=== PATIENT | female | born 1990 | race Caucasian/White ===

== ENCOUNTER 2017-02-07 07:34 | Emergency (ER) | payer BC ==
[2017-02-07 07:53] VITALS: BP 119/75
--- NOTE | 2017-02-07 08:02 | UC ---
Cardiac HPI - HPI Summary HPI Summary: Constant "stabbing" substernal and left chest pain with intermittent worsening of pain that radiates down left arm for three days. Difficulty sleeping last night due to pain. Saw her PCP 01/28/17 for one month of RUQ to back pain: normal US and elevated LFTs. Has an appointment with Gastro tomorrow. Patient is a store mgr. PCP Luisa Calabrese. Denies being on control. Pain started on 02/04 intermittently, became constant on 02/05 without any relief. Pain became more intense in nature on 02/06 with pain ranging from 5 - 8/ 10 in severity. No relief with antacids. Denies . she has decreased smoking from 1/2 ppd to 4 ciggs per day. No FHx heart disease, PE or DVT. - History of Current Complaint Chief Complaint: UCChestPain Stated Complaint: CHEST PAIN INTO ARM, BACK ,SHOULDER Time Seen by Provider: 02/07/17 07:42 - Allergy/Home Medications Allergies/Adverse Reactions: Allergies Allergy/AdvReac Type Severity Reaction Status Date / Time [place] Oil Allergy See Comment Verified 02/07/17 07:49 Soy Allergy Allergy See Comment Verified 02/07/17 07:49 Home Medications: Home Medications Calcium Carbonate CHEW TAB* [Tums*] 1,000 mg PO ONCE 02/07/17 [History Confirmed 02/07/17] Ondansetron ODT TAB* [Zofran 4 MG Odt TAB*] 4 mg PO Q6H PRN 02/07/17 [History Confirmed 02/07/17] PMH/Surg Hx/FS Hx/Imm Hx Previously Healthy: Yes Endocrine History Of: Denies: Diabetes, Thyroid Disease, Hyperthyroidism, Hypothyroidism, Dyslipidemia Cardiovascular History Of: Denies: Cardiac Disorders, Hypertension, Pacemaker/ICD, Myocardial Infarction , Congestive Heart Failure, Atrial Fibrillation, Deep Vein Thrombosis, Bleeding Disorders Respiratory History Of: Denies: COPD, Asthma, Bronchitis, Pneumonia, Pulmonary Embolism GI/ History Of: Denies: Gastroesophageal Reflux, Ulcer, Gastrointestinal Bleed, Gall Bladder Disease, Kidney Stones, Diverticulitis, Renal Disease, Urosepsis Neurological History Of: Denies: TIA, CVA, Dementia, Seizures, Migraine Psychological History Of: Denies: Anxiety, Depression, Bipolar Disorder, Schizophrenia, Post Traumatic Stress Disorder Cancer History Of: Denies: Lung Cancer, Colorectal Cancer, Breast Cancer, Prostate Cancer, Cervical Cancer Other History Of: Negative For: HIV, Hepatitis B, Hepatitis C - Surgical History Surgical History: None - Family History Known Family History: Positive: Other - No DVT or PE Negative: Cardiac Disease, Hypertension - Social History Alcohol Use: None Substance Use Type: None Substance Use Comment - Amount & Last Used: Weekly and last used yesterday Smoking Status (MU): Light Every Day Tobacco Smoker Type: Cigarettes Amount Used/How Often: 1/5 PPD Length of Time of Smoking/Using Tobacco: Since age 17 Have You Smoked in the Last Year: Yes Household Exposure Type: Cigarettes - Immunization History Most Recent Influenza Vaccination: Not the Season Review of Systems Constitutional: Negative Skin: Negative Eyes: Negative ENT: Negative Respiratory: Negative Cardiovascular: Chest Pain Gastrointestinal: Abdominal Pain Genitourinary: Negative Motor: Negative Neurovascular: Negative Musculoskeletal: Negative Neurological: Negative Psychological: Negative All Other Systems Reviewed And Are Negative: Yes Physical Exam Triage Information Reviewed: Yes Appearance: Well-Appearing, No Pain Distress, Well-Nourished Vital Signs: Initial Vital Signs Temp 97.8 F 02/07/17 07:47 Pulse 90 02/07/17 07:47 Resp 18 02/07/17 07:47 BP 119/75 02/07/17 07:47 Pulse Ox 100 02/07/17 07:47 Vital Signs Reviewed: Yes Eye Exam: Normal ENT Exam: Normal ENT: Positive: Pharynx normal, TMs normal Dental Exam: Normal Neck exam: Normal Neck: Positive: Supple, Nontender, No Lymphadenopathy Respiratory Exam: Normal Respiratory: Positive: Chest non-tender, Lungs clear, Normal breath sounds, No respiratory distress, No accessory muscle use, Other: - no tenderness in thoracic back. Negative: Crackles, Rhonchi, Stridor, Wheezing Cardiovascular Exam: Normal Cardiovascular: Positive: RRR, No Murmur, Pulses Normal, Brisk Capillary Refill Abdominal Exam: Normal Abdomen Description: Positive: Nontender, Soft Musculoskeletal Exam: Normal Neurological Exam: Normal Psychological Exam: Normal Skin Exam: Normal Diagnostics - EKG Cardiac Rate: NL Cardiac Rhythm: Sinus: Normal Ectopy: None ST Segment: Normal - no previous to compare - Assessment/Plan Course Of Treatment: Explained the need to r/o PE and need for CT with contrast that must be done through the ER. She declines ambulance and has signed AMA form. She prefers [facility], which is most reasonable as it is closest and concern for potential life threatening emergency. She is very agreeable with going straight to the ER. - Differential Diagnoses - Chest Pain Differential Diagnosis/HQI/PQRI: Acute TX, ACS, Angina, Aortic Aneurysm, Chest Wall, GI Disease, Pulmonary Edema, Pulmonary Embolism - Differential Diagnoses - Hypertension Differential Diagnosis/HQI PQRI: AAA, Angina, Other - PE, gerd - Clinical Impression Provider Diagnoses: chest pain, back pain, left arm pain - Physician Notifications Discussed Patient Care With: Ysabel Pappas NP at [facility] who accepts pt. Aware of concern for PE and recommendation for CT with contrast. nml EKG findings. She declines ambulance and prefers to go to [facility] by private care. Time Discussed With Above Provider: 08:15 Discharge - Discharge Plan Condition: Fair Disposition: TRANS HIGHER LVL OF CARE FAC Referrals: No Primary Care Phys,NOPCP [Primary Care Provider] - 2 Days Luisa Calabrese MD [Medical Doctor] -
== END 2017-02-07 08:25 | disposition short-term general hospital (02) ==
LOC: UCCORT 07:34
DX: R07.2 Precordial pain (principal); M79.602 Pain in left arm; M54.9 Dorsalgia, unspecified; F17.210 Nicotine dependence, cigarettes, uncomplicated
CPT/HCPCS: 93005; 99212; G0463

== ENCOUNTER 2017-03-26 19:03 | Emergency (ER) | payer BC ==
[2017-03-26 19:25] VITALS: BP 132/88
--- NOTE | 2017-03-26 19:41 | UC ---
UC Dental HPI - HPI Summary HPI Summary: pt presents with c/o of gradual onset of right upper molar pain. Pt has not been to a dentist in 7 years and reports that she noticed that her right last upper molar has a "hole in it" The molar has become increasingly tender with chewing and pain radiate to right ear and forehead - History of Current Complaint Chief Complaint: UCDentalProblem Stated Complaint: DENTAL Time Seen by Provider: 03/26/17 19:35 Hx Obtained From: Patient Hx Last Menstrual Period: 03/21/17 ?: No Onset/Duration: Gradual Onset, Lasting Days Severity: Mild Aggravating: Heat, Cold, Chewing - Allergies/Home Medications Allergies/Adverse Reactions: Allergies Allergy/AdvReac Type Severity Reaction Status Date / Time [place] Oil Allergy See Comment Verified 03/26/17 19:15 Soy Allergy Allergy See Comment Verified 03/26/17 19:15 Home Medications: Home Medications Acetaminophen TAB* [Tylenol TAB*] 1,000 mg PO PRN 03/26/17 [History] Amoxicillin (*) [Amoxicillin 875 MG (*)] 500 mg BID 03/26/17 [History Confirmed 03/26/17] Omeprazole CAP* [Prilosec CAP* 20 MG] 20 mg PO DAILY 03/26/17 [History Confirmed 03/26/17] PMH/Surg Hx/FS Hx/Imm Hx Endocrine History Of: Denies: Diabetes, Thyroid Disease, Hyperthyroidism, Hypothyroidism, Dyslipidemia Cardiovascular History Of: Denies: Cardiac Disorders, Hypertension, Pacemaker/ICD, Myocardial Infarction , Congestive Heart Failure, Atrial Fibrillation, Deep Vein Thrombosis, Bleeding Disorders Respiratory History Of: Denies: COPD, Asthma, Bronchitis, Pneumonia, Pulmonary Embolism GI/ History Of: Denies: Gastroesophageal Reflux, Ulcer, Gastrointestinal Bleed, Gall Bladder Disease, Kidney Stones, Diverticulitis, Renal Disease, Urosepsis Neurological History Of: Denies: TIA, CVA, Dementia, Seizures, Migraine Psychological History Of: Denies: Anxiety, Depression, Bipolar Disorder, Schizophrenia, Post Traumatic Stress Disorder Cancer History Of: Denies: Lung Cancer, Colorectal Cancer, Breast Cancer, Prostate Cancer, Cervical Cancer Other History Of: Negative For: HIV, Hepatitis B, Hepatitis C - Surgical History Surgical History: None - Family History Known Family History: Positive: Other - No DVT or PE Negative: Cardiac Disease, Hypertension - Social History Alcohol Use: None Substance Use Type: None Substance Use Comment - Amount & Last Used: Weekly and last used yesterday Smoking Status (MU): Light Every Day Tobacco Smoker Type: Cigarettes Amount Used/How Often: 1/5 PPD Length of Time of Smoking/Using Tobacco: Since age 17 Have You Smoked in the Last Year: Yes Household Exposure Type: Cigarettes - Immunization History Most Recent Influenza Vaccination: NONE Most Recent Tetanus Shot: UTD Review of Systems Constitutional: Negative Skin: Negative Eyes: Negative ENT: Ear Ache - right ear, Other - dental pain Respiratory: Negative Cardiovascular: Negative Gastrointestinal: Negative Genitourinary: Negative, Dysuria Motor: Negative Neurovascular: Negative Musculoskeletal: Negative Neurological: Headache Psychological: Negative All Other Systems Reviewed And Are Negative: Yes Physical Exam Triage Information Reviewed: Yes Appearance: Well-Appearing Vital Signs: Initial Vital Signs Temp 98.1 F 03/26/17 19:19 Pulse 84 03/26/17 19:19 Resp 18 03/26/17 19:19 BP 132/88 03/26/17 19:19 Pulse Ox 100 03/26/17 19:19 Vital Signs Reviewed: Yes Eye Exam: Normal ENT Exam: Normal Dental Exam: Other Dental: Positive: Gross Decay/Caries @ - right last molar fractured Neck exam: Normal Respiratory Exam: Normal Cardiovascular Exam: Normal Musculoskeletal Exam: Normal Neurological Exam: Normal Psychological Exam: Normal Skin Exam: Normal Dental Complaint Course/Dx - Differential Dx/Diagnosis Differential Diagnosis/Dx: Dental Abscess, Dental Caries, Fractured Tooth Provider Diagnoses: right fractured molar. dental abscess Discharge - Discharge Plan Condition: Stable Disposition: HOME Prescriptions: Amoxicillin CAP* [Amoxicillin 500 MG CAP*] 500 mg PO Q12H #14 cap Ibuprofen TAB* [Motrin TAB* 800 MG] 800 mg PO Q8H #21 tab Lidocaine 2% VISCOUS* [Xylocaine 2% Viscous*] 15 ml SWISH SPIT Q4H PRN #1 btl PRN Reason: Pain Patient Education Materials: Dental Abscess (ED) Referrals: Luisa Calabrese MD [Primary Care Provider] - Additional Instructions: Please follow up with a dental care provider as soon as possible. Please return to clinic as needed.
== END 2017-03-26 19:49 | disposition home or self-care (01) ==
LOC: UCCORT 19:03
DX: K04.7 Periapical abscess without sinus (principal); K03.81 Cracked tooth; K02.9 Dental caries, unspecified; F17.210 Nicotine dependence, cigarettes, uncomplicated
CPT/HCPCS: 99212; G0463

== ENCOUNTER 2017-05-02 18:26 | Emergency (ER) | payer BC ==
[2017-05-02 19:17] VITALS: BP 133/71
--- NOTE | 2017-05-02 19:47 | UC ---
UC Dental HPI - HPI Summary HPI Summary: pt presents with c/o bilateral upper and lower wisdom teeth pain and dental fracture. Pt is scheduled to have 4 wisdom teeth out on May 19. - History of Current Complaint Chief Complaint: UCDentalProblem Stated Complaint: TOOTH PAIN Time Seen by Provider: 05/02/17 19:38 Hx Obtained From: Patient Hx Last Menstrual Period: 04/16/17 ?: No Onset/Duration: Gradual Onset, Lasting Days, Still Present Severity: Moderate Aggravating: Chewing Related History: Swelling, Other - dental fracture - Allergies/Home Medications Allergies/Adverse Reactions: Allergies Allergy/AdvReac Type Severity Reaction Status Date / Time [place] Oil Allergy See Comment Verified 05/02/17 19:17 Soy Allergy Allergy See Comment Verified 05/02/17 19:17 PMH/Surg Hx/FS Hx/Imm Hx Previously Healthy: Yes - history poor dentition Other History Of: Negative For: HIV, Hepatitis B, Hepatitis C - Surgical History Surgical History: None - Family History Known Family History: Positive: Other - No DVT or PE Negative: Cardiac Disease, Hypertension - Social History Alcohol Use: None Substance Use Type: None Substance Use Comment - Amount & Last Used: Weekly and last used yesterday Smoking Status (MU): Light Every Day Tobacco Smoker Type: Cigarettes Amount Used/How Often: 1/5 PPD Length of Time of Smoking/Using Tobacco: Since age 17 Have You Smoked in the Last Year: Yes Household Exposure Type: Cigarettes - Immunization History Most Recent Influenza Vaccination: NONE Most Recent Tetanus Shot: UTD Review of Systems Constitutional: Negative Skin: Negative Eyes: Negative ENT: Other - dental pain, jaw pain Respiratory: Negative Cardiovascular: Negative Gastrointestinal: Negative Genitourinary: Negative Motor: Negative Neurovascular: Negative Musculoskeletal: Arthralgia - jaw pain Neurological: Negative Psychological: Negative All Other Systems Reviewed And Are Negative: Yes Physical Exam Triage Information Reviewed: Yes Vital Signs: Initial Vital Signs Temp 98.2 F 05/02/17 19:10 Pulse 82 05/02/17 19:10 Resp 17 05/02/17 19:10 BP 133/71 05/02/17 19:10 Pulse Ox 100 05/02/17 19:10 Vital Signs Reviewed: Yes Eye Exam: Normal ENT Exam: Other - jaw pain Dental Exam: Other Dental: Positive: Dental Fracture @ - wisdom teeth, bilateral Neck exam: Normal Musculoskeletal Exam: Normal Neurological Exam: Normal Psychological Exam: Normal Skin Exam: Normal Dental Complaint Course/Dx - Differential Dx/Diagnosis Differential Diagnosis/Dx: Dental Abscess, Fractured Tooth Provider Diagnoses: dental fracture. dental abscess Discharge - Discharge Plan Condition: Stable Disposition: HOME Prescriptions: Amoxicillin (*) [Amoxicillin 875 MG (*)] 875 mg PO BID #20 tab Ibuprofen TAB* [Motrin TAB* 800 MG] 800 mg PO Q8H #21 tab predniSONE TAB* [Deltasone TAB*] 20 mg PO DAILY #5 tab Patient Education Materials: Dental Abscess (ED) Forms: *Work Release Referrals: Luisa Calabrese MD [Primary Care Provider] - Additional Instructions: Please follow up with your dental care provider as needed.
== END 2017-05-02 19:57 | disposition home or self-care (01) ==
LOC: UCCORT 18:26
DX: K03.81 Cracked tooth (principal); K08.89 Other specified disorders of teeth and supporting structures; F17.210 Nicotine dependence, cigarettes, uncomplicated
CPT/HCPCS: 99212; G0463

== ENCOUNTER 2017-06-07 08:17 | Emergency (ER) | payer BC ==
[2017-06-07 08:39] VITALS: BP 114/74
--- NOTE | 2017-06-07 08:47 | UC ---
Respiratory Complaint HPI - HPI Summary HPI Summary: COUGH / CHEST CONGESTION X 2 DAYS + WHEEZING, NO FEVER, NO CHILLS, NO SOB - History of Current Complaint Chief Complaint: UCRespiratory Stated Complaint: COUGH,CONGESTION Time Seen by Provider: 06/07/17 08:39 Hx Obtained From: Patient Hx Last Menstrual Period: 05/14/17 Onset/Duration: Gradual Onset, Lasting Days - 2, Still Present Timing: Constant Severity Initially: Moderate Severity Currently: Moderate Character: Cough: Productive - YELLOW Aggravating Factors: Exertion, Deep Breaths Alleviating Factors: Nothing Associated Signs And Symptoms: Positive: Wheezing, URI, Nasal Congestion. Negative: Dyspnea, Fever, Chills, Pleuritic Chest Pain, Calf Pain, Calf Swelling , Sinus Discomfort - Allergies/Home Medications Allergies/Adverse Reactions: Allergies Allergy/AdvReac Type Severity Reaction Status Date / Time [place] Oil Allergy See Comment Verified 06/07/17 08:29 Soy Allergy Allergy See Comment Verified 06/07/17 08:29 seasonal Allergy Eyes Uncoded 06/07/17 08:29 Itchy/Swollen/Red/Watery Home Medications: Home Medications Diphenhydramine-Phenylephrine- [Theraflu Expressmax 12.5-5-325 mg/15Ml] 1 liq PO ONCE PRN 06/07/17 [History Confirmed 06/07/17] PMH/Surg Hx/FS Hx/Imm Hx GI/ History: Gastroesophageal Reflux Other History Of: Negative For: HIV, Hepatitis B, Hepatitis C - Surgical History Surgical History: None - Family History Known Family History: Positive: Other - No DVT or PE Negative: Cardiac Disease, Hypertension - Social History Alcohol Use: None Substance Use Type: None Substance Use Comment - Amount & Last Used: Weekly and last used yesterday Smoking Status (MU): Light Every Day Tobacco Smoker Type: Cigarettes Amount Used/How Often: 1/5 PPD Length of Time of Smoking/Using Tobacco: Since age 17 Have You Smoked in the Last Year: Yes Household Exposure Type: Cigarettes - Immunization History Most Recent Influenza Vaccination: NONE Most Recent Tetanus Shot: UTD Review of Systems Constitutional: Negative Skin: Negative Eyes: Negative ENT: Nasal Discharge Respiratory: Cough Cardiovascular: Negative Gastrointestinal: Negative All Other Systems Reviewed And Are Negative: Yes Physical Exam Triage Information Reviewed: Yes Appearance: Well-Appearing, No Pain Distress, Obese Vital Signs: Initial Vital Signs Temp 97.5 F 06/07/17 08:21 Pulse 84 06/07/17 08:21 Resp 24 06/07/17 08:21 BP 114/74 06/07/17 08:21 Pulse Ox 99 06/07/17 08:21 Vital Signs Reviewed: Yes Eyes: Positive: Conjunctiva Clear ENT: Positive: Normal ENT inspection, Hearing grossly normal, Pharynx normal Neck: Positive: Supple, Nontender, No Lymphadenopathy Respiratory: Positive: Chest non-tender, No respiratory distress, No accessory muscle use, Wheezing. Negative: Crackles, Rhonchi, Stridor Cardiovascular: Positive: RRR, No Murmur, Pulses Normal Abdominal Exam: Normal Skin Exam: Normal UC Diagnostic Evaluation - Laboratory O2 Sat by Pulse Oximetry: 99 Respiratory Course/Dx - Differential Dx/Diagnosis Provider Diagnoses: VIRAL BRONCHITIS Discharge - Discharge Plan Condition: Stable Disposition: HOME Prescriptions: Albuterol HFA INHALER* [Ventolin HFA Inhaler*] 2 puff INH Q6H PRN #1 mdi PRN Reason: Wheezing Benzonatate CAP* [Tessalon 100 MG CAP*] 100 mg PO TID PRN #21 cap PRN Reason: Cough Patient Education Materials: Acute Bronchitis (ED) Referrals: Luisa Calabrese MD [Primary Care Provider] - 7 Days
== END 2017-06-07 08:56 | disposition home or self-care (01) ==
LOC: UCCORT 08:17
DX: J20.8 Acute bronchitis due to other specified organisms (principal); F17.210 Nicotine dependence, cigarettes, uncomplicated
CPT/HCPCS: 99212; G0463

== ENCOUNTER 2017-11-18 10:27 | Emergency (ER) | payer BC ==
--- NOTE | 2017-11-18 10:48 | UC ---
Throat Pain/Nasal [place] HPI - HPI Summary HPI Summary: 27 YEAR MALE PRESENTS WITH COMPLAINS OF COUGH AND SINUS CONGESTION. - History of Current Complaint Chief Complaint: UCRespiratory Stated Complaint: CONGESTION Time Seen by Provider: 11/18/17 10:47 Hx Obtained From: Patient Hx Last Menstrual Period: 04/16/17 Onset/Duration: Sudden Onset Severity: Moderate Pain Scale Used: 0-10 Numeric - 5 - Allergies/Home Medications Allergies/Adverse Reactions: Allergies Allergy/AdvReac Type Severity Reaction Status Date / Time [place] Oil Allergy See Comment Verified 11/18/17 10:49 Soy Allergy Allergy See Comment Verified 11/18/17 10:49 seasonal Allergy Eyes Uncoded 11/18/17 10:49 Itchy/Swollen/Red/Watery PMH/Surg Hx/FS Hx/Imm Hx Previously Healthy: Yes Other History Of: Negative For: HIV, Hepatitis B, Hepatitis C - Surgical History Surgical History: None - Family History Known Family History: Positive: Other - No DVT or PE Negative: Cardiac Disease, Hypertension - Social History Alcohol Use: None Substance Use Type: None Substance Use Comment - Amount & Last Used: Weekly and last used yesterday Smoking Status (MU): Light Every Day Tobacco Smoker Type: Cigarettes Amount Used/How Often: 1/5 PPD Length of Time of Smoking/Using Tobacco: Since age 17 Have You Smoked in the Last Year: Yes Household Exposure Type: Cigarettes - Immunization History Most Recent Influenza Vaccination: NONE Most Recent Tetanus Shot: UTD Review of Systems Constitutional: Negative Skin: Negative Eyes: Negative ENT: Sore Throat, Nasal Discharge, Sinus Congestion, Sinus Pain/Tenderness Respiratory: Negative Cardiovascular: Negative Gastrointestinal: Negative Genitourinary: Negative Motor: Negative Neurovascular: Negative Musculoskeletal: Negative Neurological: Negative Psychological: Negative All Other Systems Reviewed And Are Negative: Yes Physical Exam Triage Information Reviewed: Yes Vital Signs Reviewed: Yes Eye Exam: Normal ENT: Positive: Pharyngeal erythema, Nasal congestion, Nasal drainage, Sinus tenderness Dental Exam: Normal Neck exam: Normal Neck: Positive: 1 Respiratory Exam: Normal Cardiovascular Exam: Normal Abdominal Exam: Normal Musculoskeletal Exam: Normal Neurological Exam: Normal Psychological Exam: Normal Skin Exam: Normal Throat Pain/Nasal Course/Dx - Differential Dx/Diagnosis Provider Diagnoses: SINUSITIS. COUGH Discharge - Discharge Plan Condition: Stable Disposition: HOME Prescriptions: Albuterol HFA INHALER* [Ventolin HFA Inhaler*] 1 puff INH Q6H PRN #1 mdi PRN Reason: Cough Azithromyxin CATHIE (NF) [Z-Cathie (Zithromax) 250 mg tabs #6] 2 tab PO .TODAY, THEN 1 DAILY #6 tab Guaifenesin-Codeine [Cheratussin AC] 1 syp PO Q8H PRN #120 ml MDD 15 ml PRN Reason: Cough LoraTADine TAB(NF) [Claritin 10 MG TAB(NF)] 10 mg PO DAILY #30 tab Patient Education Materials: Sinusitis (ED) Referrals: No Primary Care Phys,NOPCP [Primary Care Provider] -
[2017-11-18 10:55] VITALS: BP 124/70
== END 2017-11-18 11:04 | disposition home or self-care (01) ==
LOC: UCCORT 10:27
DX: J32.9 Chronic sinusitis, unspecified (principal); R05 Cough; F17.210 Nicotine dependence, cigarettes, uncomplicated
CPT/HCPCS: 99212; G0463

== ENCOUNTER 2017-11-22 08:13 | Emergency (ER) | payer BC ==
[2017-11-22 08:24] VITALS: BP 136/82
--- NOTE | 2017-11-22 08:38 | UC ---
Respiratory Complaint HPI - HPI Summary HPI Summary: continuing cough and chest tightness fevers, chills---boy friend with similar c/ o - History of Current Complaint Chief Complaint: UCRespiratory Stated Complaint: COUGH/CHEST TIGHTNESS Time Seen by Provider: 11/22/17 08:32 Hx Obtained From: Patient Hx Last Menstrual Period: last week ?: No Onset/Duration: Sudden Onset, Lasting Days - 5, Still Present Timing: Constant Severity Initially: Moderate Severity Currently: Moderate Pain Intensity: 6 Pain Scale Used: 0-10 Numeric Character: Cough: Nonproductive Aggravating Factors: Recumbent Position Alleviating Factors: Bronchodilator Associated Signs And Symptoms: Positive: Fever, Chills, Pleuritic Chest Pain, Wheezing, URI, Nasal Congestion - Allergies/Home Medications Allergies/Adverse Reactions: Allergies Allergy/AdvReac Type Severity Reaction Status Date / Time [place] Oil Allergy See Comment Verified 11/22/17 08:24 Soy Allergy Allergy See Comment Verified 11/22/17 08:24 seasonal Allergy Eyes Uncoded 11/22/17 08:24 Itchy/Swollen/Red/Watery PMH/Surg Hx/FS Hx/Imm Hx Previously Healthy: No GI/ History: Gastroesophageal Reflux Other History Of: Negative For: HIV, Hepatitis B, Hepatitis C - Surgical History Surgical History: None - Family History Known Family History: Positive: Other - No DVT or PE Negative: Cardiac Disease, Hypertension - Social History Occupation: Employed Full-time Lives: With Family Alcohol Use: None Substance Use Type: None Substance Use Comment - Amount & Last Used: Weekly and last used yesterday Smoking Status (MU): Light Every Day Tobacco Smoker Type: Cigarettes Amount Used/How Often: 1/5 PPD Length of Time of Smoking/Using Tobacco: Since age 17 Have You Smoked in the Last Year: Yes Household Exposure Type: Cigarettes Cessation Counseling: Patient Advised to Stop - Immunization History Most Recent Influenza Vaccination: NONE 2017/2017 Most Recent Tetanus Shot: UTD Review of Systems Constitutional: Fever, Chills, Fatigue Skin: Negative Eyes: Negative ENT: Sore Throat, Ear Ache, Nasal Discharge, Sinus Congestion Respiratory: Cough Cardiovascular: Negative Gastrointestinal: Negative Genitourinary: Negative Motor: Negative Neurovascular: Negative Musculoskeletal: Arthralgia, Myalgia Neurological: Headache Psychological: Negative Is Patient Immunocompromised?: No All Other Systems Reviewed And Are Negative: Yes Physical Exam Triage Information Reviewed: Yes Appearance: Ill-Appearing - mild, Pain Distress - mild, Obese Vital Signs: Initial Vital Signs Temp 98.0 F 11/22/17 08:18 Pulse 105 11/22/17 08:18 Resp 22 11/22/17 08:18 BP 136/82 11/22/17 08:18 Pulse Ox 100 11/22/17 08:18 Vital Signs Reviewed: Yes Eye Exam: Normal Eyes: Positive: Conjunctiva Clear ENT Exam: Normal ENT: Positive: Normal ENT inspection, Hearing grossly normal, Pharynx normal, TMs normal, Uvula midline. Negative: Nasal congestion, Nasal drainage, Tonsillar swelling, Tonsillar exudate, Trismus, Muffled voice, Hoarse voice, Sinus tenderness Dental Exam: Normal Neck exam: Normal Neck: Positive: Supple, Nontender, No Lymphadenopathy Respiratory Exam: Normal Respiratory: Positive: Chest non-tender, Lungs clear, Normal breath sounds, No respiratory distress, No accessory muscle use Cardiovascular Exam: Normal Cardiovascular: Positive: RRR, No Murmur, Pulses Normal, Brisk Capillary Refill Musculoskeletal Exam: Normal Musculoskeletal: Positive: Strength Intact, ROM Intact, No Edema Neurological Exam: Normal Neurological: Positive: Alert, Muscle Tone Normal Psychological Exam: Normal Skin Exam: Normal UC Diagnostic Evaluation - Laboratory O2 Sat by Pulse Oximetry: 100 Diagnostic Studies Comment: Influenza A (-), Influenza B(+) Respiratory Course/Dx - Course Course Of Treatment: tylenol, ibuprofen, prednisone, albuterol, increase fluids , rest follow with pcp prn - Differential Dx/Diagnosis Provider Diagnoses: Influenza B, Nicotine dependent, Bronchospasm Discharge - Discharge Plan Condition: Stable Disposition: HOME Prescriptions: Albuterol 2.5MG/3ML (0.083%)* [Ventolin 2.5 MG/3 ML NEB.BHARATHI*] 2.5 mg INH Q4H PRN #1 box PRN Reason: cough/chest tightness predniSONE TAB* [Deltasone TAB*] 20 mg PO DAILY #9 tab Patient Education Materials: Influenza (ED) Forms: *Work Release Referrals: [facility] [Outside] - If Needed
[2017-11-22] MEDS ORDERED: Albuterol/Ipratropium NEB.SOL* Albuterol 2.5 MG/Ipratropium 0.5 MG 3 ML INH ONE (08:39)
[2017-11-22] MEDS ORDERED: predniSONE TAB* 20 MG PO ONE (08:39)
== END 2017-11-22 09:22 | disposition home or self-care (01) ==
LOC: UCCORT 08:13
DX: J11.1 Influenza due to unidentified influenza virus with other respiratory manifestations (principal); K21.9 Gastro-esophageal reflux disease without esophagitis; F17.210 Nicotine dependence, cigarettes, uncomplicated
CPT/HCPCS: 87502; 99212; A9270-GY; G0463; J7512

== ENCOUNTER 2017-12-06 21:23 | Emergency (ER) | payer BC, OTHER ==
[2017-12-06 21:33] VITALS: BP 141/75
[2017-12-06] MEDS ORDERED: Amoxicillin PO (*) 500 MG CAP PO ONE (21:40)
--- NOTE | 2017-12-06 21:47 | UC ---
Ear Complaint HPI - HPI Summary HPI Summary: pt c/o nasal congestion, sinus pressure and bilateral ear pain and pressure. c/ o right ear pain > than left. - History of Current Complaint Chief Complaint: UCRespiratory Stated Complaint: HEAD PRESSURE Time Seen by Provider: 12/06/17 21:34 Hx Obtained From: Patient Hx Last Menstrual Period: 11/11/17 ?: No Onset/Duration: Gradual Onset, Lasting Days, Still Present, Worse Since - onset Severity Initially: Mild Severity Currently: Moderate Associated Signs/Symptoms: Positive: Hearing Loss, URI Symptoms - Allergies/Home Medications Allergies/Adverse Reactions: Allergies Allergy/AdvReac Type Severity Reaction Status Date / Time [place] Oil Allergy See Comment Verified 12/06/17 21:33 Soy Allergy Allergy See Comment Verified 12/06/17 21:33 seasonal Allergy Eyes Uncoded 12/06/17 21:33 Itchy/Swollen/Red/Watery PMH/Surg Hx/FS Hx/Imm Hx Previously Healthy: Yes Other History Of: Negative For: HIV, Hepatitis B, Hepatitis C - Surgical History Surgical History: None - Family History Known Family History: Positive: Other - No DVT or PE Negative: Cardiac Disease, Hypertension - Social History Occupation: Employed Full-time Lives: With Family Alcohol Use: Rare Substance Use Type: None Substance Use Comment - Amount & Last Used: Weekly and last used yesterday Smoking Status (MU): Light Every Day Tobacco Smoker Type: Cigarettes Amount Used/How Often: 1/5 PPD Length of Time of Smoking/Using Tobacco: Since age 17 Have You Smoked in the Last Year: Yes Household Exposure Type: Cigarettes - Immunization History Most Recent Influenza Vaccination: NONE 2016/2017 Most Recent Tetanus Shot: UTD Review of Systems Constitutional: Negative Skin: Negative Eyes: Negative ENT: Ear Ache - bilateral, Sinus Congestion, Sinus Pain/Tenderness Respiratory: Cough Cardiovascular: Negative Gastrointestinal: Negative Genitourinary: Negative Motor: Negative Neurovascular: Negative Musculoskeletal: Negative Neurological: Headache Psychological: Negative Is Patient Immunocompromised?: No All Other Systems Reviewed And Are Negative: Yes Physical Exam Triage Information Reviewed: Yes Appearance: Ill-Appearing Vital Signs: Initial Vital Signs Temp 97.5 F 12/06/17 21:28 Pulse 122 12/06/17 21:28 Resp 16 12/06/17 21:28 BP 141/75 12/06/17 21:28 Pulse Ox 100 12/06/17 21:28 Vital Signs Reviewed: Yes Eye Exam: Normal ENT Exam: Other ENT: Positive: Nasal congestion, TM bulging, TM dull, TM red - Bilateral, Right > than left, Sinus tenderness, Other - tongue ring Dental Exam: Normal Neck exam: Normal Respiratory Exam: Normal Cardiovascular Exam: Normal Musculoskeletal Exam: Normal Neurological Exam: Normal Psychological Exam: Normal Skin Exam: Normal Ear Complaint Course/Dx - Differential Dx/Diagnosis Differential Diagnosis/HQI/PQRI: Otitis Media, URI, Other - sinusitis Provider Diagnoses: OM bilateral ears Discharge - Discharge Plan Condition: Stable Disposition: HOME Prescriptions: Amoxicillin PO (*) [Amoxicillin 875 MG (*)] 875 mg PO Q12H #20 tab Pseudoephedrine-Guaifenesin [Mucinex D 60-600 mg] 1 tab PO DAILY #10 tab Patient Education Materials: Otitis Media (ED) Referrals: No Primary Care Phys,NOPCP [Primary Care Provider] - If Needed
== END 2017-12-06 21:48 | disposition home or self-care (01) ==
LOC: UCCORT 21:23
DX: H66.93 Otitis media, unspecified, bilateral (principal); Z72.0 Tobacco use
CPT/HCPCS: 99212; A9270-GY; G0463

== ENCOUNTER 2018-01-27 19:20 | Emergency (ER) | payer OTHER ==
[2018-01-27 19:42] VITALS: BP 117/78
[2018-01-27] MEDS ORDERED: Levalbuterol 0.63MG/3ML NEB* UNIT OF USE INH ONE (19:59)
[2018-01-27] MEDS ORDERED: predniSONE TAB* 20 MG PO ONE (19:59)
--- NOTE | 2018-01-27 20:07 | UC ---
Respiratory Complaint HPI - HPI Summary HPI Summary: Pt c/o sudden onset of nasal congestion, wheezing, cough and generalized malaise X 1 day. - History of Current Complaint Chief Complaint: UCRespiratory Stated Complaint: WHEEZING, CONGESTION Time Seen by Provider: 01/27/18 19:43 Hx Obtained From: Patient Hx Last Menstrual Period: 01/17/18 ?: No Onset/Duration: Sudden Onset, Still Present, Worse Since - onset Timing: Constant Severity Initially: Mild Severity Currently: Moderate Pain Intensity: 0 Character: Cough: Nonproductive Aggravating Factors: Exertion, Deep Breaths, Recumbent Position Alleviating Factors: Nothing Associated Signs And Symptoms: Positive: Wheezing, URI, Nasal Congestion - Risk Factors Pulmonary Embolism Risk Factors: Smoking Cardiac Risk Factors: Smoking Tuberculosis Risk Factors: Smoking - Allergies/Home Medications Allergies/Adverse Reactions: Allergies Allergy/AdvReac Type Severity Reaction Status Date / Time almond oil Allergy See Comment Verified 01/27/18 19:38 soy Allergy See Comment Verified 01/27/18 19:38 seasonal Allergy Eyes Uncoded 12/06/17 21:33 Itchy/Swollen/Red/Watery PMH/Surg Hx/FS Hx/Imm Hx Previously Healthy: Yes Other History Of: Negative For: HIV, Hepatitis B, Hepatitis C - Surgical History Surgical History: None - Family History Known Family History: Positive: Other - No DVT or PE Negative: Cardiac Disease, Hypertension - Social History Occupation: Employed Full-time Lives: With Family Alcohol Use: Rare Substance Use Type: None Substance Use Comment - Amount & Last Used: Weekly and last used yesterday Smoking Status (MU): Light Every Day Tobacco Smoker Type: Cigarettes Amount Used/How Often: 1/5 PPD Length of Time of Smoking/Using Tobacco: Since age 17 Have You Smoked in the Last Year: Yes Household Exposure Type: Cigarettes - Immunization History Most Recent Influenza Vaccination: NONE 2017/2018 Most Recent Tetanus Shot: UTD Review of Systems Constitutional: Chills, Fatigue Skin: Negative Eyes: Negative ENT: Other - nasal congestion Respiratory: Cough, Other - wheezing Cardiovascular: Negative Gastrointestinal: Negative Genitourinary: Negative Motor: Negative Neurovascular: Negative Musculoskeletal: Negative Neurological: Negative Psychological: Negative Is Patient Immunocompromised?: No All Other Systems Reviewed And Are Negative: Yes Physical Exam Triage Information Reviewed: Yes Appearance: Ill-Appearing Vital Signs: Initial Vital Signs Temp 99.5 F 01/27/18 19:36 Pulse 98 01/27/18 19:36 Resp 20 01/27/18 19:36 BP 117/78 01/27/18 19:36 Pulse Ox 98 01/27/18 19:36 Vital Signs Reviewed: Yes Eye Exam: Normal ENT Exam: Other ENT: Positive: Nasal congestion Dental Exam: Normal Neck exam: Normal Respiratory Exam: Other Respiratory: Positive: Wheezing Cardiovascular Exam: Normal Musculoskeletal Exam: Normal Neurological Exam: Normal Psychological Exam: Normal Skin Exam: Normal UC Diagnostic Evaluation - Laboratory O2 Sat by Pulse Oximetry: 98 Respiratory Course/Dx - Differential Dx/Diagnosis Differential Diagnosis/HQI/PQRI: Bronchitis, Influenza, Other - pneumonia Provider Diagnoses: reactive airway disease Discharge - Discharge Plan Condition: Stable Disposition: HOME Prescriptions: Albuterol HFA INHALER* [Ventolin HFA Inhaler*] 1 puff INH Q6H PRN #1 mdi PRN Reason: Cough Cetirizine* [ZyrTEC 10 MG TAB*] 10 mg PO DAILY #20 tab methylPREDNISolone TAB* [Medrol TAB*] 4 - 8 mg PO .SEE CATHIE #1 cathie Montelukast Sodium TAB* [Singulair TAB*] 10 mg PO BEDTIME #20 tab Patient Education Materials: Reactive Airways Disease (ED) Referrals: [facility] [Outside] No Primary Care Phys,NOPCP [Primary Care Provider] -
== END 2018-01-27 20:36 | disposition home or self-care (01) ==
LOC: UCCORT 19:20
DX: J45.909 Unspecified asthma, uncomplicated (principal); Z91.018 Allergy to other foods; Z91.048 Other nonmedicinal substance allergy status; F17.210 Nicotine dependence, cigarettes, uncomplicated
CPT/HCPCS: 99212; G0463; J7512; J7614

== ENCOUNTER 2018-07-04 16:17 | Emergency (ER) | payer OTHER ==
--- OUTSIDE RECORDS SUMMARY | 2018-07-04 16:27 | XMS REPORT ---
:1990 External Reference #:[id number] Author Organization [facility] Address [address] [place] [address] Phone [phone] Care Team Providers Name Role Phone Luisa Calabrese MD Care Team Information Embedded Software Design Engineer Unavailable Luisa Calabrese MD Primary Care Physician Unavailable Payers Type Date Identification Numbers Payment Provider Subscriber Health Maintenance Policy Number: [facility] Lizeth Crane ([facility] [id number] Kedar PayID: [id number] [address] [place] [address] Problems Date Description Provider Status Onset: 06/13/2018 Uncomplicated moderate persistent Michael Osorio MD Active asthma Onset: 06/13/2018 Allergic rhinitis Michael Osorio MD Active Onset: 06/13/2018 Allergic rhinitis due to pollen Michael Osorio MD Active Family History Date Family Member(s) Problem(s) Comments General Gallbladder Cancer General Asthma Social History Type Date Description Comments Home Environment Does not have an air conditioner Home Environment There is no basement Home Environment The floors are carpeted Home Environment Uses forced air heating Smoke-Free Home is smoke-free Pets Rabbit Smoking Patient is a former smoker recently quit smoking cigarettes Allergies, Adverse Reactions, Alerts Date Description Reaction Status Severity Comments 06/13/2018 NKDA active Medications Medication Date Status Form Strength Qnty SIG Indications Ordering Provider Mometasone 06/13/ Active Suspension 50mcg/Act 17gm instill J30.1 [facility] Furoate 2017 2 sprays Aelxi Osorio MD into each nostril once daily Xyzal 06/13/ Active Tablets 5mg 30tabs take 1 J30.1 [facility] 24HR 2018 tablet Alexi Osorio MD (5 mg) by oral route once daily as needed Breo Ellipta 06/13/ Active Aerosol 200-25mcg/ 28unit inhale J30.1 [facility] 2018 Inh s one puff Alexi Osorio MD once a day Proair HFA 06/13/ Active Aerosol 108(90Base 8.500g 2 puffs J30.1 [facility]2017 ) mcg/Act m every 4 Alexi Osorio MD as needed Omeprazole / Active Capsules DR 20mg take one Unknown 0000 capsule daily 30 minutes prior to eating Vital Signs Date Vital Result Comment 06/20/2018 BP Systolic 132 mmHg BP Diastolic 68 mmHg Height 63 inches 5'3" Weight 276.00 lb BMI (Body Mass Index) 48.9 kg/m2 Heart Rate 76 /min Body Temperature 98.1 F O2 % BldC Oximetry 99 % 06/13/2018 BP Systolic 136 mmHg BP Diastolic 72 mmHg Height 63 inches 5'3" Weight 276.00 lb BMI (Body Mass Index) 48.9 kg/m2 Heart Rate 89 /min Body Temperature 98.8 F O2 % BldC Oximetry 98 % Results Description No Information Procedures Date CPT Code Description Status 06/13/2018 41585 Nitric Oxide Gas Determination Completed 06/13/2018 62997 Allergy Tests Percutaneous W/ Allergenic Extracts Completed 06/13/2018 97446 Bronchodilation Responsiveness Spirometry Pre/Post Completed Bronchodil Adm Encounters Type Date Location Provider CPT E/M Dx Office Visit 06/13/2018 10:00a [place] [address] J30.1 J30.89 J45.40 Plan of Care 06/13/2018 - Michael Osorio MDJ30.1 Allergic rhinitis due to pollenNew Medication:Mometasone Furoate 50 mcg/ActXyzal Allergy 24HR 5 mgBreo Ellipta 200- 25 mcg/InhProair HFA 108(90 Base) mcg/ActJ30.89 Other allergic fxwueqdpX10.40 Moderate persistent asthma, uncomplicated
--- OUTSIDE RECORDS SUMMARY | 2018-07-04 16:27 | XMS REPORT ---
:1990 External Reference #:[id number] Author Organization [facility] Address [address] [place] [address] Phone [phone] Care Team Providers Name Role Phone Luisa Calabrese MD Care Team Information Echocardiograph Technician Unavailable Luisa Calabrese MD Primary Care Physician Unavailable Payers Type Date Identification Numbers Payment Provider Subscriber Health Maintenance Policy Number: [facility] Lizeth Crane ([facility] [place] [place] [id number] Kedar PayID: [id number] [address] [place] [address] Problems Description No Information Family History Date Family Member(s) Problem(s) Comments General Gallbladder Cancer General Asthma Social History Type Date Description Comments Home Environment Does not have an air conditioner Home Environment There is no basement Home Environment The floors are carpeted Home Environment Uses forced air heating Smoke-Free Home is smoke-free Pets Rabbit Smoking Patient is a former smoker Allergies, Adverse Reactions, Alerts Date Description Reaction Status Severity Comments 06/13/2018 NKDA active Medications Medication Date Status Form Strength Qnty SIG Indications Ordering Provider Omeprazole [address] 20mg take one Unknown 00 capsule daily 30 minutes prior to eating Vital Signs Date Vital Result Comment 06/13/2018 BP Systolic 136 mmHg BP Diastolic 72 mmHg Height 63 inches 5'3" Weight 276.00 lb BMI (Body Mass Index) 48.9 kg/m2 Heart Rate 89 /min Body Temperature 98.8 F O2 % BldC Oximetry 98 % Results Description No Information Procedures Description No Information Plan of Care No Information Available
--- OUTSIDE RECORDS SUMMARY | 2018-07-04 16:27 | XMS REPORT ---
:1990 External Reference #:[id number] Author Organization [facility] Address [address] [place] [address] Phone [phone] Care Team Providers Name Role Phone Luisa Calabrese MD Care Team Information Television Announcer Unavailable Luisa Calabrese MD Primary Care Physician Unavailable Payers Type Date Identification Numbers Payment Provider Subscriber Health Maintenance Policy Number: [facility] Lizeth Crane ([facility] [place]) [id number] Kedar PayID: [id number] [address] [place] [address] Problems Date Description Provider Status Onset: 06/13/2018 [...] instill J30.1 [facility] Furoate 2017 2 sprays Alexi Osorio MD into each nostril once daily Xyzal 06/13/ Active Tablets 5mg 30tabs take 1 J30.1 [facility] 24HR 2018 tablet Alexi Osorio MD (5 mg) by oral route once daily as needed Breo Ellipta 06/13/ Active Aerosol 200-25mcg/ 28unit inhale J30.1 [facility] 2018 Inh s one puff Alexi Osorio MD once a day Proair HFA 06/13/ Active Aerosol 108(90Base 8.500g 2 puffs J30.1 [facility]2017 ) mcg/Act m every 4 Alexi Osorio MD as needed Omeprazole 00/ Active Capsules DR 20mg take one Unknown 0000 capsule daily 30 minutes prior to eating Vital Signs Date Vital Result Comment 06/13/2018 BP Systolic 136 mmHg BP Diastolic 72 mmHg Height 63 inches 5'3" Weight 276.00 lb BMI (Body Mass Index) 48.9 kg/m2 Heart Rate 89 /min Body Temperature 98.8 F O2 % BldC Oximetry 98 % Results Test Date Test Result H/L Range Note Order 06/13/2018 Nitric Oxide <pending> PFT Supplies <pending> PFT With Bronchodilator <pending> Skin Test Seasonal and Environmental <pending> Procedures Date CPT Code Description Status 06/13/2018 39323 Nitric Oxide Gas Determination Completed 06/13/2018 00065 Allergy Tests Percutaneous W/ Allergenic Extracts Completed 06/13/2018 48600 Bronchodilation Responsiveness Spirometry Pre/Post Completed Bronchodil Adm Plan of Care 06/13/2018 - Michael Osorio MDJ30.1 Allergic rhinitis due to pollenNew Medication:Mometasone Furoate 50 mcg/ActXyzal Allergy 24HR 5 mgBreo Ellipta 200- 25 mcg/InhProair HFA 108(90 Base) mcg/ActJ30.89 Other allergic babyullxN51.40 Moderate persistent asthma, uncomplicated
--- OUTSIDE RECORDS SUMMARY | 2018-07-04 16:27 | XMS REPORT ---
:1990 External Reference #:[id number] Author Organization [facility] Address [address] [place] [address] Phone [phone] Care Team Providers Name Role Phone Luisa Calabrese MD Care Team Information Certified Medical Technician Assistant Unavailable Luisa Calabrese MD Primary Care Physician Unavailable Payers Type Date Identification Numbers Payment Provider Subscriber Health Maintenance Policy Number: [facility] Lizeth Crane ([facility] [id number] Kedar PayID: [id number] [address] [place] [address] Problems Date Description Provider Status Onset: 06/20/2018 Allergic urticaria IVY Hand Active Onset: 06/13/2018 Uncomplicated moderate persistent Michael Osorio [...] Active Tablets 5mg 30tabs take 1 J30.1 [place] [facility] 24HR 2018 tablet Alexi Osorio MD (5 mg) by oral route once daily as needed Breo Ellipta 06/13/ Active Aerosol 200-25mcg/ 28unit inhale J30.1 [place] 2018 Inh s one puff Alexi Osorio MD once a day Proair HFA 06/13/ Active Aerosol 108(90Base 8.500g 2 puffs J30.1 [place] 2018 ) mcg/Act m every 4 Alexi Osorio [...] Information Procedures Date CPT Code Description Status 06/20/2018 18958 Allergy Tests Percutaneous W/ Allergenic Extracts Completed 06/13/2018 65084 Nitric Oxide Gas Determination Completed 06/13/2018 52009 Allergy Tests Percutaneous W/ Allergenic Extracts Completed 06/13/2018 92172 Bronchodilation Responsiveness Spirometry Pre/Post Completed Bronchodil Adm Encounters Type Date Location Provider CPT E/M Dx Office Visit 06/20/2018 9:00a [place] Jones 09529 L50.0 J30.1 J30.89 J45.40 Office Visit 06/13/2018 10:00[place] [address] J30.1 J30.89 J45.40 Plan of Care Future Appointment(s):07/04/2018 8:30 am - IVY Hand at [id number] - David Vazquez, PAL50.0 Allergic rwoiiyrmxD52.1 Allergic rhinitis due to rdizdmC74.89 Other allergic kfgoofeeT72.40 Moderate persistent asthma, uncomplicatedComments:Patient's PFT is normal and exhaled nitric oxide is elevated at 34 ppb. Patient's environmental skin tested 2+ to 57 environmental allergens, and 4+ to birch and cat. Patient to use Breo for prophylaxis of her lungs and pro-air for breakthrough chest symptoms. Patient to use Nasonex for prophylaxis of her nose and Xyzal for breakthrough nasal symptoms. Patient is not interested in allergen immunotherapy injections at this time.Patient to be tested for food allergens.Patient was given samples of Breo today.Greater than 50% of the 25-minute visit was spent in discussion of the testing results and treatment options.Follow up:6 months, PFT and NIOX prior.
--- OUTSIDE RECORDS SUMMARY | 2018-07-04 16:27 | XMS REPORT ---
:1990 External Reference #:[id number] Author Organization [facility] Address [address] [place] [address] Phone [phone] Care Team Providers Name Role Phone Luisa Calabrese MD Care Team Information Carpet Sewing Machine Operator Unavailable Luisa Calabrese MD Primary Care Physician Unavailable Payers Type Date Identification Numbers Payment Provider Subscriber Health Maintenance Policy Number: [facility] Lizeth Crane ([facility] [id number] Kedar PayID: [id number] [address] [place] [address] Problems Date Description Provider Status Onset: 06/20/2018 [...] Alerts Date Description Reaction Status Severity Comments 07/04/2018 Breo Ellipta Nausea and Vomiting active 06/13/2018 NKDA inactive Medications Medication Date Status Form Strength Qnty SIG Indications Ordering Provider Mometasone 06/13/ Active Suspension 50mcg/Act 17gm instill J30.1 [facility] Furoate 2017 2 sprays Alexi Osorio MD into each nostril once daily Xyzal 06/13/ Active Tablets 5mg 30tabs take 1 [facility] 2018 tablet Alexi Osorio MD (5 mg) by oral route once daily as needed Proair HFA 06/13/ Active Aerosol 108(90Base 8.500g 2 puffs J30.1 [facility] ) mcg/Act m every 4 Alexi Osorio MD as needed Omeprazole / Active Capsules DR 20mg take one Unknown 0000 capsule daily 30 minutes prior to eating Breo Ellipta 06/13/ Hx Aerosol 200-25mcg/ 28unit inhale J30.1 [facility] - Inh s one puff Alexi Osorio MD 06/28/ once a 2018 day Vital Signs Date Vital Result Comment 07/04/2018 BP Systolic 112 mmHg BP Diastolic 76 mmHg Height 63 inches 5'3" Weight 276.00 lb BMI (Body Mass Index) 48.9 kg/m2 Heart Rate 94 /min Respiratory Rate 16 /min Body Temperature 98.0 F O2 % BldC Oximetry 99 % 06/20/2018 BP Systolic 132 mmHg BP Diastolic [...] Procedures Date CPT Code Description Status 06/20/2018 14316 Allergy Tests Percutaneous W/ Allergenic Extracts Completed 06/13/2018 61796 Nitric Oxide Gas Determination Completed 06/13/2018 60192 Allergy Tests Percutaneous W/ Allergenic Extracts Completed 06/13/2018 59836 Bronchodilation Responsiveness Spirometry Pre/Post Completed Bronchodil Adm Encounters Type Date Location Provider CPT E/M Dx Office Visit 06/20/2018 9:00a IVY Jones 75364 L50.0 J30.1 J30.89 J45.40 Office Visit 06/13/2018 10:00[place] [address] J30.1 J30.89 J45.40 Plan of Care 06/20/2018 - David Vazquez, PAL50.0 Allergic qaykgmdceL81.1 Allergic rhinitis due to zpspzwU09.89 Other allergic gpfuyaqhT32.40 Moderate persistent asthma, uncomplicatedComments:Patient's PFT is normal [...]
--- OUTSIDE RECORDS SUMMARY | 2018-07-04 16:27 | XMS REPORT ---
:1990 External Reference #:[id number] Author Organization [facility] Address [address] [place] [address] Phone [phone] Care Team Providers Name Role Phone Luisa Calabrese MD Care Team Information Stress Analyst Unavailable Luisa Calabrese MD Primary Care Physician Unavailable Payers Type Date Identification Numbers Payment Provider Subscriber Health Maintenance Policy Number: [facility] Lizeth Crane ([employer]) [id number] Kedar PayID: [id number] [address] [place] [address] Problems Date Description Provider Status Onset: 07/04/2018 Allergy to other foods Michael Osorio MD Active Onset: 06/20/2018 Allergic urticaria IVY Hand Active [...] Form Strength Qnty SIG Indications Ordering Provider Auvi-Q 07/04/ Active Solution 0.3mg/0.3 4unit use as [facility] 2017 Auto-Inject ML s directed Alexi Osorio MD Montelukast 07/04/ Active Tablets 10mg 30tab take one [place] Sodium 2017 s tablet by Alexi Osorio MD mouth daily in the evening Mometasone 06/13/ Active Suspension 50mcg/Act 17gm instill 2 [facility]30.1 [facility] 2017 sprays Alexi Osorio MD into each nostril once daily Xyzal Allergy 06/13/ Active Tablets 5mg 30tab take 1 J30.1 [place] 24HR 2018 s tablet (5 Alexi Osorio MD mg) by oral route once daily as needed Proair HFA 06/13/ Active Aerosol 108(90Bas 8.500 2 puffs J30.1 [place] 2017 e) gm every 4 Alexi Osorio MD mcg/Act as needed Omeprazole / Active Capsules DR 20mg take one Unknown 0000 capsule daily 30 minutes prior to eating Breo Ellipta 06/13/ Hx Aerosol 200-25mcg 28uni inhale J30.1 [place] 2017 - /Inh ts one puff Alexi Osorio MD 06/28/ once [...] Date Test Result H/L Range Note Order 07/04/2018 Epinephrine Injector Training <pending> Procedures Date CPT Code Description Status 07/04/2018 16062 Education/Training PT Self-Management Each 30Minutes Completed Indiv PT 06/20/2018 14898 Allergy Tests Percutaneous W/ Allergenic Extracts Completed 06/13/2018 76081 Nitric Oxide Gas Determination Completed 06/13/2018 09087 Allergy Tests Percutaneous W/ Allergenic Extracts Completed 06/13/2018 13403 Bronchodilation Responsiveness Spirometry Pre/Post Completed Bronchodil Adm Encounters Type Date Location Provider CPT E/M Dx Office Visit 07/04/2018 8:30[place] [address] Z91.018 Office Visit 06/20/2018 9:00a IVY Jones 16560 L50.0 J30.1 J30.89 J45.40 Office Visit 06/13/2018 10:00[place] [address] J30.1 J30.89 J45.40 Plan of Care Future Appointment(s):01/04/2019 10:00 am - Anastasiia Evans RPA-Kiersten at C[facility]41/07/2018 - Michael Osorio MDZ91.018 Allergy to other foods
--- NOTE | 2018-07-04 17:05 | UC ---
Knee Pain HPI - HPI Summary HPI Summary: pt is c/o pain to the front of both knees for the past 3 months R>L. No hx injury, swelling, fever or other joint pains - History of Current Complaint Chief Complaint: UCLowerExtremity Stated Complaint: BILATERAL KNEE PAIN Time Seen by Provider: 07/04/18 16:55 Hx Obtained From: Patient Hx Last Menstrual Period: 06/09/18 Onset/Duration: Gradual Onset Pain Intensity: 6 Aggravating Factor(s): Prolonged Standing, Other - kneeling Alleviating Factor(s): Rest Associated Signs And Symptoms: Negative: Swelling, Redness, Fever, Weakness, Numbness, Tingling - Risk Factors Septic Arthritis Risk Factor: Negative Gout Risk Factor: Negative - Allergies/Home Medications Allergies/Adverse Reactions: Allergies Allergy/AdvReac Type Severity Reaction Status Date / Time almond oil Allergy Swelling Verified 07/04/18 16:41 Of Face,Lips,& Throat soy Allergy See Comment Verified 07/04/18 16:41 Tree Nuts Allergy Swelling Verified 07/04/18 16:41 Of Face,Lips,& Throat milk, ryder, strawberries Allergy Nausea Uncoded 07/04/18 16:41 seasonal Allergy Eyes Uncoded 07/04/18 16:41 Itchy/Swollen/Red/Watery Home Medications: Home Medications Levocetirizine Dihydrochloride [Xyzal Allergy 24Hr] 5 mg PO DAILY 07/04/18 [ History Confirmed 07/04/18] Mometasone Furoate [Nasonex] 50 mcg NA DAILY 07/04/18 [History Confirmed ] PMH/Surg Hx/FS Hx/Imm Hx GI/ History: Gastroesophageal Reflux Other History Of: Negative For: HIV, Hepatitis B, Hepatitis C - Surgical History Surgical History: None - Family History Known Family History: Positive: Other - No DVT or PE Negative: Cardiac Disease, Hypertension - Social History Occupation: Employed Full-time Alcohol Use: Occasionally Substance Use Type: None Substance Use Comment - Amount & Last Used: Weekly and last used yesterday Smoking Status (MU): Light Every Day Tobacco Smoker Type: Cigarettes Amount Used/How Often: 1/10 PPD Length of Time of Smoking/Using Tobacco: Since age 17 Have You Smoked in the Last Year: Yes Household Exposure Type: Cigarettes - Immunization History Most Recent Influenza Vaccination: NONE 2017/2018 Most Recent Tetanus Shot: UTD Vaccination Up to Date: Yes Review of Systems Constitutional: Negative Skin: Negative Eyes: Negative ENT: Negative Respiratory: Negative Cardiovascular: Negative Gastrointestinal: Negative Genitourinary: Negative Motor: Negative Neurovascular: Negative Musculoskeletal: Arthralgia - knees Neurological: Negative Psychological: Negative Is Patient Immunocompromised?: No All Other Systems Reviewed And Are Negative: Yes Physical Exam Triage Information Reviewed: Yes Appearance: Well-Appearing Vital Signs: Initial Vital Signs Temp 99.9 F 07/04/18 16:26 Pulse 114 07/04/18 16:26 Resp 20 07/04/18 16:26 BP 139/97 07/04/18 16:26 Pulse Ox 100 07/04/18 16:26 Vital Signs Reviewed: Yes Eyes: Positive: Conjunctiva Clear ENT: Positive: Normal ENT inspection Neck: Positive: Supple, Nontender, No Lymphadenopathy Respiratory: Positive: Lungs clear, Normal breath sounds Cardiovascular: Positive: RRR, No Murmur Abdomen Description: Positive: Nontender, No Organomegaly, Soft Bowel Sounds: Positive: Present Neurological: Positive: Other: - BLE's= no gross deformity, swelling or discoloration. tender to both anterior knees. no apprehension with lateral stressing to patellas and no patellar grind. no laxity to either knee. passive/ active rom is intact. BLE's have full s/v/m function. Psychological: Positive: Age Appropriate Behavior Skin Exam: Normal Diagnostics - Radiology No standard instances Radiology Interpretation Completed By: Radiologist - #. Normal bilateral 2 view radiographic exam of the knees. Knee Pain Course/Dx - Course Course Of Treatment: Repeat BP 121/67. no concern for infection, fx or dislocation. no joint laxity. will trial nsaid, otc compression sleeves for knees and ortho f/u. possible patellofemoral pain syndrom. - Differential Dx/Diagnosis Provider Diagnoses: BILATERAL ANTERIOR KNEE PAIN. POSSIBLE PATELLOFEMORAL SYNDROM Discharge - Sign-Out/Discharge Documenting (check all that apply): Patient Departure - Discharge Plan Condition: Stable Disposition: HOME Patient Education Materials: Patellofemoral Pain Syndrome (ED), Knee Pain (ED) Forms: *Work Release Referrals: Luisa Calabrese MD [Primary Care Provider] - If Needed Cory Dobbins MD [Medical Doctor] - As Soon As Possible Additional Instructions: DIAGNOSIS: BILATERAL ANTERIOR KNEE PAIN. POSSIBLE PATELLOFEMORAL PAIN USE OVER THE COUNTER COMPRESSION SLEEVES FOR KNEES DURING DAY BUT REMOVE AT BEDTIME. TAKE OVER THE COUNTER ALEVE ONE 220MG TABLET TWICE DAILY FOR 5-7 DAYS. Per institutional requirements, I have reviewed the chart, however, I was not consulted specifically or made aware of this patient by the above midlevel provider. I did not personally evaluate, interact with , or disposition this patient. - Billing Disposition and Condition Condition: STABLE Disposition: Home Addendum entered and electronically signed by Melissa Sneed PA 07/04/18 18:09 :
[2018-07-04 17:23] VITALS: BP 121/67
--- NOTE | 2018-07-04 17:59 | RAD ---
Indication: 3 months bilateral anterior knee pain without preceding injury. Comparison: No relevant prior exams available on the [facility] for comparison. Technique: AP and lateral views of the bilateral knees. Report: Normal articular alignment bilaterally. Negative for joint effusions, fracture, or focal osseous lesions. Unremarkable soft tissue contours. IMPRESSION: #. Normal bilateral 2 view radiographic exam of the knees.
== END 2018-07-04 18:12 | disposition home or self-care (01) ==
LOC: UCCORT 16:17
DX: M25.562 Pain in left knee (principal); M25.561 Pain in right knee; F17.210 Nicotine dependence, cigarettes, uncomplicated
CPT/HCPCS: 99211; G0463

== ENCOUNTER 2019-02-01 11:41 | Emergency (ER) | payer BC, OTHER ==
--- OUTSIDE RECORDS SUMMARY | 2019-02-01 11:55 | XMS REPORT | Continuity of Care Document ---
:1990 External Reference #:[id number] Author Name Luisa Calabrese MD Address [address] [place] [address] Care Team Providers Name Role Phone Luisa Calabrese MD Care Team Information Analytical Manager Unavailable Luisa Calabrese MD Primary Care Physician Unavailable Payers Date Identification Numbers Payment Provider Subscriber Policy Number: [id number] [employer] Lizeth Thacker PayID: [id number] [address] [place] [address] Expires: 2018 Policy Number: [id number] [facility] Lizeth Thacker Group Number: [id number] [address] PayID: [id number] [place] [address] Advance Directives Description No Information Available Problems Date Description Provider Status Onset: 07/11/2018 Derangement of knee Shirley Lopez PA Active Family History Date Family Member(s) Observation Comments Father No Current Problems Mother No Current Problems Social History Type Date Description Comments Sex Unknown Marital Status Single Lives With Boyfriend Lives With Brother Home Environment Lives With Boyfriend 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 Hand Dominance Right-handed Tobacco Use Start: Unknown End: Quit Unknown Smoking Status Reviewed: 01/09/19 Quit ETOH Use Rarely consumes alcohol Recreational Drug Use Denies Drug Use Tobacco Use Start: Unknown End: Patient is a former QUIT SMOKING 09/02/18 Unknown smoker Allergies, Adverse Reactions, Alerts Date Description Reaction Status Severity Comments 01/28/2017 Almonds Active 02/07/2017 Peanut Active 03/13/2018 Egg Extract Pt does not know Active 07/04/2018 Breo Ellipta Free Text Active 01/28/2017 Soybean-containing Drug Products Active 01/28/2017 Peanut-containing Drug Products Active 07/11/2018 Tree Nuts Active 07/11/2018 Strawberries Active 07/11/2018 Seasonal Active 09/15/2018 Dairy Active Medications Medication Date Status Form Strength Qnty SIG Indications Ordering Provider Escitalopram 01/09/20 Active Tablets 10mg 90tab take one F41.0 Gagen, Oxalate 19 s every day Mireya e, MS, MAKEUP ARTIST-C, CNM Zofran 01/09/20 Active Tablets 8mg 30tab 1 tab R11.0 Gagen, 19 s sublingua Mireya l every e, MS, day as MAKEUP ARTIST-C, needed CNM for nausea Montelukast 10/23/20 Active Tablets 10mg 90tab 1 by J30.89 Gagen, Sodium 18 s mouth Mireya every day e, MS, MAKEUP ARTIST-C, CNM Melatonin 10/23/20 Active Capsules 5mg 30cap Take one G47.00 Gagen, 18 s at night Mireya for e, MS, insomnia MAKEUP ARTIST-C, CNM Fluticasone 09/06/20 Active Suspension 50mcg/Act 32gm 2 sprays F41.0 Gagen, Propionate 18 intranasa Mireya l every e, MS, day MAKEUP ARTIST-C, CNM Omeprazole 02/18/20 Active Capsules 20mg 30cap 1 tab po R10.[address] rodriguez am with , flaco Arteaga MD Montelukast Active Tablets 10mg 1 daily Guerrero Osorio Sodium 00 istopher MD [place] HFA Active Aerosol 108(90Bas 8gm take 2 DevonChr 00 e) puffs istopher mcg/Act every 6 MD hours as needed for shortness of breath. Loratadine Active Capsules 10mg 1 by Unknown (OTC) 00 mouth every day Escitalopram 09/20/20 Hx Tablets 5mg 90tab 1 tab by F41.0 Gagen, Oxalate 18 - s mouth Mireya 01/09/20 every e, MS, 19 night MAKEUP ARTIST-C, CNM Zofran Odt 09/20/20 Hx Tablets 4mg 30tab 1 tab R11.0 Gagen, 18 - Dispers s sublingua Mireya 01/09/20 l every e, MS, 19 day as MAKEUP ARTIST-C, needed CNM for nausea Sertraline HCL 09/06/20 Hx Tablets 25mg 30tab 1 tab by F41.0 Gagen, 18 - s mouth Mireya Unknown every day e, MS, MAKEUP ARTIST-C, CNM No Active 01/29/20 Hx Bharati, Medications 17 - MD Luisa 01/29/20 17 Zofran Odt 01/29/20 Hx Tablets 4mg 30tab 1 tab Bharati, 17 - Dispers s sublingua MD Luisa Unknown l every day as needed for nausea Levocetirizine Hx Tablets 5mg 1daily Guerrero Osorio Dihydrochloride 00 - istopher 10/23/20 18 Prednisone Hx Tablets 20mg 1 tab Louis, 00 - daily for Durga 01/09/20 left knee M., M.D 19 pain. Immunizations Description No Information Available Vital Signs Date Vital Result Comment 01/09/2019 9:00am BP Systolic Sitting Left Arm 110 mmHg BP Diastolic Sitting Left Arm 72 mmHg Body Temperature 98.4 F Heart Rate 76 /min Reg Respiratory Rate 24 /min Height 64 inches 5'4" Weight 295.00 lb BMI (Body Mass Index) 50.6 kg/m2 BSA (Body Surface Area) 2.31 m2 [place] body weight in kilograms 54 kg O2 % BldC Oximetry 98 % Ra 10/23/2018 3:19pm BP Systolic Sitting Right Arm 128 mmHg BP Diastolic Sitting Right Arm 80 mmHg Body Temperature 98.9 F Heart Rate 79 /min Respiratory Rate 18 /min Height 64 inches 5'4" Weight 283.00 lb BMI (Body Mass Index) 48.6 kg/m2 BSA (Body Surface Area) 2.27 m2 [place] body weight in kilograms 54 kg O2 % BldC Oximetry 98 % 09/20/2018 8:56am BP Systolic 152 mmHg BP Diastolic 97 mmHg BP Systolic Sitting Left Arm 148 mmHg on recheck with manual cuff. BP Diastolic Sitting Left Arm 78 mmHg on recheck with manual cuff. Body Temperature 97.3 F Heart Rate 76 /min Respiratory Rate 18 /min Height 64 inches 5'4" Weight 282.12 lb BMI (Body Mass Index) 48.4 kg/m2 BSA (Body Surface Area) 2.26 m2 [place] body weight in kilograms 54 kg O2 % BldC Oximetry 100 % 09/15/2018 3:01pm BP Systolic Sitting Right Arm 132 mmHg BP Diastolic Sitting Right Arm 86 mmHg Heart Rate 106 /min Respiratory Rate 18 /min Height 64 inches 5'4" Weight 281.00 lb BMI (Body Mass Index) 48.2 kg/m2 BSA (Body Surface Area) 2.26 m2 [place] body weight in kilograms 54 kg O2 % BldC Oximetry 99 % Room air 09/06/2018 2:24pm BP Systolic 150 mmHg BP Diastolic 94 mmHg Body Temperature 99.1 F Heart Rate 121 /min Respiratory Rate 20 /min Height 64 inches 5'4" Weight 274.44 lb BMI (Body Mass Index) 47.1 kg/m2 BSA (Body Surface Area) 2.24 m2 [place] body weight in kilograms 54 kg O2 % BldC Oximetry 98 % 07/11/2018 11:10am BP Systolic Sitting Right Arm 145 mmHg BP Diastolic Sitting Right Arm 106 mmHg Body Temperature 98.9 F Heart Rate 97 /min Height 64 inches 5'4" Weight 279.00 lb BMI (Body Mass Index) 47.9 kg/m2 BSA (Body Surface Area) 2.25 m2 [place] body weight in kilograms 54 kg O2 % BldC Oximetry 117 % 02/17/2017 3:46pm BP Systolic 120 mmHg BP Diastolic 88 mmHg Heart Rate 89 /min Weight 274.00 lb 01/28/2017 2:18pm BP Systolic 126 mmHg BP Diastolic 74 mmHg Heart Rate 124 /min Height 64 inches 5'4" Weight 276.00 lb BMI (Body Mass Index) 47.4 kg/m2 BSA (Body Surface Area) 2.24 m2 [place] body weight in kilograms 54 kg Results Test Date Facility Test Result H/L Range Note Eosinophil/leuk NFr N2N/CCD Import Eosinophil/leuk NFr 11.3 High 0.0-6.6 Bld Auto 018 Bld Auto Globulin Ser N2N/CCD Import Globulin Ser 4.5 High 1.9-4.3 Calc-mCnc 018 Calc-mCnc Manual blood N2N/CCD Import Manual blood 2 0-2 basophils/100 018 basophils/100 leukocytes leukocytes Manual blood N2N/CCD Import Manual blood 18 Low 20-42 lymphocytes/100 018 lymphocytes/100 leukocytes leukocytes Manual blood N2N/CCD Import Manual blood 3 0-10 monocytes/100 018 monocytes/100 leukocytes leukocytes Manual blood N2N/CCD Import Manual blood 65 33-73 segmented 018 segmented neutrophils/100 neutrophils/100 leukocytes leukocytes Monocytes/leuk NFr N2N/CCD Import Monocytes/leuk NFr 5.5 4.3- 13.2 Bld Auto 018 Bld Auto Neutrophils # Bld N2N/CCD Import Neutrophils # Bld 8.39 High 1.8- 7.0 Auto 018 Auto Neutrophils/leuk NFr N2N/CCD Import Neutrophils/leuk 59.9 40.4- 72. Bld Auto 018 NFr Bld Auto 8 Potassium SerPl-sCnc N2N/CCD Import Potassium 3.7 3.5-5.1 018 SerPl-sCnc RDW RBC Auto N2N/CCD Import RDW RBC Auto 39.6 3-47 018 RDW RBC Auto-Rto N2N/CCD Import RDW RBC Auto-Rto 13.7 11.7-14. 018 4 Serum carbon dioxide N2N/CCD Import Serum carbon 26 21-32 measurement 018 dioxide measurement Serum or plasma N2N/CCD Import Serum or plasma 3.7 3.4-5.0 albumin measurement 018 albumin measurement (mass/volume) (mass/volume) Serum or plasma N2N/CCD Import Serum or plasma 68 45-117 alkaline phosphatase 018 alkaline measurement ( phosphatase measurement (enzymatic activity/volume) Serum or plasma N2N/CCD Import Serum or plasma 31 15-37 aspartate 018 aspartate aminotransferase aminotransferase measure measurement (enzymatic activity/volume) Serum or plasma N2N/CCD Import Serum or plasma 9.0 8.5-10.1 calcium measurement 018 calcium measurement (mass/volume) (mass/volume) Serum or plasma N2N/CCD Import Serum or plasma 0.8 0.6-1.3 creatinine 018 creatinine measurement measurement (mass/volum (mass/volume) Serum or plasma N2N/CCD Import Serum or plasma 114 High 74-106 glucose measurement 018 glucose measurement (mass/volume) (mass/volume) Serum or plasma N2N/CCD Import Serum or plasma 8.2 6.4-8.2 protein measurement 018 protein measurement (mass/volume) (mass/volume) Serum or plasma urea N2N/CCD Import Serum or plasma 8 7-18 nitrogen measurement 018 urea nitrogen (mass/vo measurement (mass/volume) Serum or plasma urea N2N/CCD Import Serum or plasma 10.0 nitrogen/creatinine 018 urea mass rati nitrogen/creatinine mass ratio Serum sodium N2N/CCD Import Serum sodium 140 136-145 measurement 018 measurement Unloinc N2N/CCD Import Unloinc Diff 018 Ordered [facility] Glucose 114 mg/dL High 74-106 1 Metabolic Panel 018 [address] [place], [place] [id number] [phone] BUN 8 mg/dL N 7-18 Creatinine 0.8 mg/dL N 0.6-1.3 Glom Filtration Rate, Estimate >60 mL/min >60 If >60 mL/min >60 2 BUN/Creat 10.0 ratio Sodium 140 mmol/L N 136-145 Potassium 3.7 mmol/L N 3.5-5.1 Chloride 105 mmol/L N 98-107 Carbon Dioxide 26 mmol/L N 21-32 Anion Gap 9 mEq/L N 8-16 Calcium 9.0 mg/dL N 8.5-10.1 Total Protein 8.2 g/dL N 6.4-8.2 Albumin 3.7 g/dL N 3.4-5.0 Globulin 4.5 g/dL High 1.9-4.3 Alb/Glob 0.8 ratio Bilirubin,Total < 0.1 mg/dL Low 0.2-1.0 Sgot/Ast 31 U/L N 15-37 SGPT/Alt 71 U/L N 12-78 Alkaline Phosphatase 68 U/L N 45-117 Laboratory test finding 08/16/2018 [facility] Troponin-I < 0.015 ng/mL [address] [place], [place] [id number] [phone] HCG,Serum (Qualitative) NEGATIVE (Negative) 4 CBC W/Automated 08/16/2018 [facility] White Blood 14.0 K/uL High 3.1-10.[address] Count [place], [place] [id number] [phone] Red Blood Count 5.27 M/uL N 3.90-5.40 Hemoglobin 14.5 gm/dL N 11.6-15.8 Hematocrit 42.8 % N 36.0-46.1 Mean Cell Volume 81.2 fl N 80.9-99.0 Mean Corpuscular HGB 27.5 pg N 25.9-32.7 Mean Corpuscular HGB Conc 33.9 g/dL N 30.8-34.3 Platelet Count 215 K/uL N 155-360 Red Cell Distri Width SD 39.6 fl N 3-47 Red Cell Distri Width %CV 13.7 % N 11.7-14.4 Mean Platelet Volume 11.7 fL N 8.9-12.4 Neut% 59.9 % N 40.4-72.8 Lymph % 22.9 % N 20.0-42.0 [place] % 5.5 % N 4.3-13.2 Eo% 11.3 % High 0.0-6.6 Bas% 0.4 % N 0.0-1.1 Neut# 8.39 K/uL High 1.8-7.0 Lymph # 3.21 K/uL N 1.0-4.0 [place] # 0.77 K/uL N 0.3-0.9 Eos # 1.59 K/uL High 0.0-0.5 Baso # 0.05 K/uL N 0.0-0.1 Slide Review 08/16/2018 [facility] Slide Review DIFF ORDERED [address] [place], [place] [id number] [phone] Differential-WBC 08/16/2018 [facility] Total Cells 100 #CELLS Confirm [address] [place] [address] [phone] Neutrophils% 65 % N 33-73 Lymph% 18 % Low 20-42 Monocyte% 3 % N 0-10 Eosinophil% 12 % High 0-5 Basophil% 2 % N 0-2 Platelet Estimate NORMAL Anisocytosis 0-1+ Microcytosis 1+ Alt SerPl-cCnc 08/16/2018 N2N/CCD Import Alt SerPl-cCnc 71 12-78 Albumin/Glob SerPl 08/16/2018 N2N/CCD Import Albumin/Glob SerPl 0.8 Anion Gap 08/16/2018 N2N/CCD Import Anion Gap 9 8-16 SerPl-sCnc SerPl-sCnc Automated blood 08/16/2018 N2N/CCD Import Automated blood 0.05 0.0-0.1 basophil count basophil count (count/volume) (count/volume) Automated blood 08/16/2018 N2N/CCD Import Automated blood 1.59 High 0.0- 0.5 eosinophil count eosinophil count Automated blood 08/16/2018 N2N/CCD Import Automated blood 42.8 36.0- 46.1 hematocrit (volume hematocrit (volume fraction) fraction) Automated blood 08/16/2018 N2N/CCD Import Automated blood 3.21 1.0-4.0 lymphocyte count lymphocyte count (number/volume) (number/volume) Automated blood 08/16/2018 N2N/CCD Import Automated blood 215 155-360 platelet count platelet count Chloride 08/16/2018 N2N/CCD Import Chloride 105 98-107 SerPl-sCnc SerPl-sCnc Blood total cell 08/16/2018 N2N/CCD Import Blood total cell 100 count count Blood platelet 08/16/2018 N2N/CCD Import Blood platelet Normal adequacy detection adequacy detection by light microsc by light microscopy Blood monocytes 08/16/2018 N2N/CCD Import Blood monocytes 0.77 0.3-0.9 automated count automated count (number/volume) (number/volume) Blood microcytes 08/16/2018 N2N/CCD Import Blood microcytes 1+ detection by light detection by light microscopy microscopy Blood leukocytes 08/16/2018 N2N/CCD Import Blood leukocytes 14.0 High 3.1 -10.7 automated count automated count (number/volume) (number/volume) Blood hemoglobin 08/16/2018 N2N/CCD Import Blood hemoglobin 14.5 11.6- 15.8 measurement measurement (mass/volume) (mass/volume) Blood erythrocytes 08/16/2018 N2N/CCD Import Blood erythrocytes 5.27 3.90-5.40 automated count automated count (number/volume) (number/volume) Basophils/leuk NFr 08/16/2018 N2N/CCD Import Basophils/leuk NFr 0.4 0.0- 1.1 Bld Auto Bld Auto Automated 08/16/2018 N2N/CCD Import Automated 81.2 80.9-99.0 erythrocyte mean erythrocyte mean corpuscular volume corpuscular volume Automated 08/16/2018 N2N/CCD Import Automated 33.9 30.8-34.3 erythrocyte mean erythrocyte mean corpuscular corpuscular hemoglobin hemoglobin concentration measurement (mass/volume) Automated 08/16/2018 N2N/CCD Import Automated 27.5 25.9-32.7 erythrocyte mean erythrocyte mean corpuscular corpuscular hemoglobin hemoglobin (mass per erythrocyte) Automated blood 08/16/2018 N2N/CCD Import Automated blood 11.7 8.9-12.4 platelet mean platelet mean volume measurement volume measurement Ua RFX Micro & 02/20/2018 [facility] Urine Color YELLOW Yellow 5 Culture II [address] [place] [address] [phone] Urine Clarity CLEAR Clear Urine Glucose - Dipstick NEGATIVE mg/dL Negative Urine Bilirubin - Dipstick NEGATIVE Negative Urine Ketone NEGATIVE mg/dL Negative Urine Specific [place] 1.020 N 1.010-1.030 Urine Blood LARGE Abnormal Negative Urine PH 6.0 Low 6.5-7.5 Urine Protein - Dipstick NEGATIVE mg/dL Negative Urine Urobilinogen - Dipstick 0.2 E.U./dL N 0.2-1.0 Urine Nitrite - Dipstick NEGATIVE Negative Urine Leuk Esterase NEGATIVE Negative Urine RBC 10-20 rbc/hpf High 0-2 Urine WBC 0-2 wbc/hpf 0-7 Urine Epithelial Cells VERY FEW /lpf None Seen Urine Bacteria VERY FEW None Seen Source: URINE, CLEAN CAT <SEE NOTE> 6 Fibrin D-dimer 02/07/2017 N2N/CCD Import Fibrin D-dimer 0.25 Feu measurement Feu measurement in platelet poor in platelet poor pl plasma (mass/volume) Globulin Ser 02/07/2017 N2N/CCD Import Globulin Ser 3.5 1.9-4.3 Calc-mCnc Calc-mCnc Glucose 02/07/2017 N2N/CCD Import Glucose 110 High 74-106 [mass/volume] in [mass/volume] in serum or plasma serum or plasma Hct VFr Bld Auto 02/07/2017 N2N/CCD Import Hct VFr Bld Auto 43.0 36.0- 46.1 Hgb Bld-mCnc 02/07/2017 N2N/CCD Import Hgb Bld-mCnc 14.3 11.6-15.8 Lymphocytes # 02/07/2017 N2N/CCD Import Lymphocytes # Bld 1.75 1.0-4.0 Bld Auto Auto Lymphocytes/leuk 02/07/2017 N2N/CCD Import Lymphocytes/leuk 17.6 Low 20.0 -42.0 NFr Bld Auto NFr Bld Auto MCH RBC Qn Auto 02/07/2017 N2N/CCD Import MCH RBC Qn Auto 27.2 25.9- 32.7 MCHC RBC 02/07/2017 N2N/CCD Import MCHC RBC 33.3 30.8-34.3 Auto-mCnc Auto-mCnc MCV RBC Auto 02/07/2017 N2N/CCD Import MCV RBC Auto 81.7 80.9-99.0 Monocytes # Bld 02/07/2017 N2N/CCD Import Monocytes # Bld 0.61 0.3-0.9 Auto Auto Monocytes/leuk 02/07/2017 N2N/CCD Import Monocytes/leuk 6.1 4.3-13.2 NFr Bld Auto NFr Bld Auto Neutrophils # 02/07/2017 N2N/CCD Import Neutrophils # Bld 7.07 High 1.8- 7.0 Bld Auto Auto Neutrophils/leuk 02/07/2017 N2N/CCD Import Neutrophils/leuk 71.3 40.4- 72.8 NFr Bld Auto NFr Bld Auto PMV Bld Auto 02/07/2017 N2N/CCD Import PMV Bld Auto 12.1 8.9-12.4 Platelet # Bld 02/07/2017 N2N/CCD Import Platelet # Bld 201 150-400 Auto Auto Potassium 02/07/2017 N2N/CCD Import Potassium 3.9 3.5-5.1 SerPl-sCnc SerPl-sCnc Prot SerPl-mCnc 02/07/2017 N2N/CCD Import Prot SerPl-mCnc 7.7 6.4-8.2 RBC # Bld Auto 02/07/2017 N2N/CCD Import RBC # Bld Auto 5.26 3.90-5.40 RDW RBC Auto 02/07/2017 N2N/CCD Import RDW RBC Auto 39.7 3-47 RDW RBC Auto-Rto 02/07/2017 N2N/CCD Import RDW RBC Auto-Rto 13.5 11.7- 14.4 Serum or plasma 02/07/2017 N2N/CCD Import Serum or plasma 156 26-192 creatine kinase creatine kinase measurement measurement (enzym (enzymatic activity/volume) Sodium 02/07/2017 N2N/CCD Import Sodium SerPl-sCnc 140 136-145 SerPl-sCnc WBC # Bld Auto 02/07/2017 N2N/CCD Import WBC # Bld Auto 9.9 3.1-10.7 Bilirub Ur Ql 02/07/2017 N2N/CCD Import Bilirub Ur Ql Negative Negative Strip.auto Strip.auto Bacteria 02/07/2017 N2N/CCD Import Bacteria Few None Seen [presence] in [presence] in urine sediment urine sediment by by light gina light microscopy Urine Culture 02/07/2017 [facility] Urine Culture URETHRAL 7 [address] [place] [address] [phone] Quantity > 100,000 CFU/mL N 8 Ua Routine 02/07/2017 [facility] Urine Color YELLOW Yellow [address] [place] [address] [phone] Urine Clarity SL CLOUDY Clear Urine Glucose - Dipstick NEGATIVE mg/dL Negative Urine Bilirubin - Dipstick NEGATIVE Negative Urine Ketone NEGATIVE mg/dL Negative Urine Specific [place] >=1.030 N 1.010-1.030 Urine Blood NEGATIVE Negative Urine PH 5.5 Low 6.5-7.5 Urine Protein - Dipstick NEGATIVE mg/dL Negative Urine Urobilinogen - Dipstick 0.2 E.U./dL N 0.2-1.0 Urine Nitrite - Dipstick NEGATIVE Negative Urine Leuk Esterase SMALL Abnormal Negative Urine RBC 0-2 rbc/hpf 0-2 Urine WBC 5-10 wbc/hpf 0-7 Urine Epithelial Cells MANY /lpf None Seen 9 Urine Bacteria FEW None Seen Source: URINE, CLEAN CAT <SEE NOTE> 10 Color Ur 02/07/2017 N2N/CCD Import Color Ur Yellow Yellow Epithelial cells 02/07/2017 N2N/CCD Import Epithelial cells Many None Seen [presence] in [presence] in urine sediment by urine sediment l by light microscopy Ketones Ur 02/07/2017 N2N/CCD Import Ketones Ur Negative Negative Strip.auto-mCnc Strip.auto-mCnc Leukocyte 02/07/2017 N2N/CCD Import Leukocyte Small High Negative esterase Ur Ql esterase Ur Ql Strip.auto Strip.auto Nitrite Ur Ql 02/07/2017 N2N/CCD Import Nitrite Ur Ql Negative Negative Strip.auto Strip.auto Prot Ur 02/07/2017 N2N/CCD Import Prot Ur Negative Negative Strip.auto-mCnc Strip.auto-mCnc Urine appearance 02/07/2017 N2N/CCD Import Urine appearance SL Cloudy Clear determination determination Urine glucose 02/07/2017 N2N/CCD Import Urine glucose Negative Negative measurement by measurement by automated test automated test strip strip (mass/volume) Urine hemoglobin 02/07/2017 N2N/CCD Import Urine hemoglobin Negative Negative detection by detection by automated test automated test strip strip Urobilinogen Ur 02/07/2017 N2N/CCD Import Urobilinogen Ur 0.2 0.2-1.0 Strip-aCnc Strip-aCnc pH Ur Strip.auto 02/07/2017 N2N/CCD Import pH Ur Strip.auto 5.5 Low 6.5- 7.5 Laboratory test 02/07/2017 [facility] HCG,Serum NEGATIVE (Negative) finding [address] (Qualitative) [place] [address] [phone] Alp SerPl-cCnc 02/07/2017 N2N/CCD Import Alp SerPl-cCnc 75 45-117 Alt SerPl-cCnc 02/07/2017 N2N/CCD Import Alt SerPl-cCnc 95 High 12-78 Eosinophil/leuk 02/07/2017 N2N/CCD Import Eosinophil/leuk 4.7 0.0-6.6 NFr Bld Auto NFr Bld Auto Eosinophil # Bld 02/07/2017 N2N/CCD Import Eosinophil # Bld 0.47 0.0- 0.5 Auto Auto Creat SerPl-mCnc 02/07/2017 N2N/CCD Import Creat SerPl-mCnc 0.8 0.6-1.3 Chloride 02/07/2017 N2N/CCD Import Chloride 106 98-107 SerPl-sCnc SerPl-sCnc Calcium 02/07/2017 N2N/CCD Import Calcium 9.0 8.5-10.1 SerPl-mCnc SerPl-mCnc Co2 SerPl-sCnc 02/07/2017 N2N/CCD Import Co2 SerPl-sCnc 25 21-32 Bilirub 02/07/2017 N2N/CCD Import Bilirub 0.3 0.2-1.0 SerPl-mCnc SerPl-mCnc Basophils/leuk 02/07/2017 N2N/CCD Import Basophils/leuk 0.3 0.0-1.1 NFr Bld Auto NFr Bld Auto Basophils # Bld 02/07/2017 N2N/CCD Import Basophils # Bld 0.03 0.0-0.1 Auto Auto BUN/Creat SerPl 02/07/2017 N2N/CCD Import BUN/Creat SerPl 13.7 BUN SerPl-mCnc 02/07/2017 N2N/CCD Import BUN SerPl-mCnc 11 7-18 Anion Gap 02/07/2017 N2N/CCD Import Anion Gap 9 8-16 SerPl-sCnc SerPl-sCnc Albumin/Glob 02/07/2017 N2N/CCD Import Albumin/Glob 1.2 SerPl SerPl Albumin 02/07/2017 N2N/CCD Import Albumin 4.2 3.4-5.0 SerPl-mCnc SerPl-mCnc Ast SerPl-cCnc 02/07/2017 N2N/CCD Import Ast SerPl-cCnc 34 15-37 Bilirub Indirect 01/28/2017 N2N/CCD Import Bilirub Indirect 0.3 0.0-0.9 SerPl-mCnc SerPl-mCnc Lipase SerPl-cCnc 01/28/2017 N2N/CCD Import Lipase 163 73-393 SerPl-cCnc Serum or plasma 01/28/2017 N2N/CCD Import Serum or plasma 0.1 0.0-0.2 direct bilirubin direct bilirubin measurement (mass measurement (mass/volume) Liver Function 01/28/2017 [facility] Total Protein 8.1 g/dL N 6.4-8.2 11 Tests [address] [place] [address] [phone] Albumin 4.2 g/dL N 3.4-5.0 Globulin 3.9 g/dL N 1.9-4.3 Alb/Glob 1.1 ratio Bilirubin,Total 0.4 mg/dL N 0.2-1.0 Bilirubin,Direct 0.1 mg/dL N 0.0-0.2 Bilirubin,Indirect 0.3 mg/dL N 0.0-0.9 Sgot/Ast 35 U/L N 15-37 SGPT/Alt 88 U/L High 12-78 Alkaline Phosphatase 78 U/L N 45-117 Laboratory test 01/28/2017 [facility] Lipase 163 U/L N 73-393 finding [address] [place] [address] [phone] Urine human 01/07/2017 N2N/CCD Import Urine human Negative Negative chorionic chorionic gonadotropin gonadotropin (hCG) detection (hCG) detection Unloinc 12/29/2016 N2N/CCD Import Unloinc . 1 CHEST PAIN 2 Note: Persistent reduction for 3 months or more in an eGFR <60 mL/min/1.73 m2 defines CKD. Patients with eGFR values >/=60 mL/min/1.73 m2 may also have CKD if evidence of persistent proteinuria is present. The original MDRD equation for estimated GFR is not valid for patients less than 18 years of age. Additional information may be found at www.kdoqi.org. 3 0.0 - 0.045 ng/mL: Normal 0.046 - 0.5 ng/mL: Suggestive 0.6 - 1.5 ng/mL: Consistent 4 Method: Quidel QuickVue One-Step Immunoassay 5 THROWING UP SINCE THIS MORNING 6 URINE, CLEAN CATCH 7 SENT BY CC, CHEST PAIN 8 > 100,000 CFU/mL SPECIMEN IS A MIX OF GRAM POSITIVE ORGANISMS CONSISTENT WITH SKIN VAGINAL CONTAMINATION. SUGGEST REPEAT SPECIMEN IF CLINICALLY INDICATED. 9 POSSIBLE UROGENITAL CONTAMINATION. 10 URINE, CLEAN CATCH 11 R10.11 Procedures Date Code Description Status 09/20/2018 95907 Pressurized/Non-Pressurized Inhalation Treatment,Acute Completed Obstructio 09/20/2018 76070 EKG-Tracing And Report Completed Encounters Type Date Location Provider Dx Diagnosis Office Visit 01/09/2019 Primary Care Arturo, F41.0 Panic disorder 9:00a Office [place] Sheron, [episodic MAKEUP ARTIST-C, CNM paroxysmal anxiety] M25.562 Pain in left knee R11.0 Nausea R03.0 Elevated blood-pressure reading, w/o diagnosis of htn G47.00 Insomnia, unspecified E66.8 Other obesity J30.89 Other allergic rhinitis Z71.6 Tobacco abuse counseling Office Visit 10/23/2018 Primary Care Arturo, R03.0 Elevated 3:00p Office MS Sheron, blood-pressure MAKEUP ARTIST-C, CNM reading, w/o diagnosis of htn F41.0 Panic disorder [episodic paroxysmal anxiety] G47.00 Insomnia, unspecified E66.8 Other obesity J30.89 Other allergic rhinitis Office Visit 09/20/2018 9:00a Primary Care Sheron Morris, R91.1 Solitary Office JESSIE SERRANO, RUBENM pulmonary nodule J45.20 Mild intermittent asthma, uncomplicated F41.0 Panic disorder [episodic paroxysmal anxiety] R03.0 Elevated blood-pressure reading, w/o diagnosis of htn F17.211 Nicotine dependence, cigarettes, in remission R11.0 Nausea E66.8 Other obesity R07.9 Chest pain, unspecified Office Visit 09/15/2018 3:00p Pulmonology Zeus Murphy, J45.20 Mild intermittent MD asthma, uncomplicated R91.1 Solitary pulmonary nodule J30.89 Other allergic rhinitis F17.211 Nicotine dependence, cigarettes, in remission E66.8 Other obesity Office Visit 09/06/2018 2:30p Primary Care Sheron Morris, F41.0 Panic disorder Office MS, JESSIE, UDAY [episodic paroxysmal anxiety] J45.909 Unspecified asthma, uncomplicated J98.4 Other disorders of lung R05 Cough R21 Rash and other nonspecific skin eruption Office Visit 07/11/2018 Orthopaedic John, M22.2x2 Patellofemoral 11:15a Office IVY Watson disorders, left knee M22.2x1 Patellofemoral disorders, right knee Office Visit 02/17/2017 3:30p Chandler Quezada MD R94.5 Abnormal results of liver function studies R10.11 Right upper quadrant pain Office Visit 01/28/2017 2:40p Primary Care Luisa Calabrese, R10.11 Right upper Office MD quadrant pain Plan of Treatment Future Appointment(s):02/20/2019 9:00 am - Sheron Morris MS, UDAY ROMAN at Primary Care Trrsui0409/24/2019 4:00 pm - Zeus Murphy MD at Pulmonology
--- OUTSIDE RECORDS SUMMARY | 2019-02-01 11:55 | XMS REPORT | Continuity of Care Document ---
:1990 External Reference #:[id number] Author Name Lea Spencer MD Address [address] [place] [address] Care Team Providers Name Role Phone Luisa Calabrese MD Care Team Information Tram Operator Unavailable Luisa Calabrese MD Primary Care Physician Unavailable Payers Date Identification Numbers Payment Provider Subscriber Policy Number: [id number] [employer] Lizeth Thacker PayID: [id number] [address] [place] [address] Expires: 2018 Policy Number: [id number] [facility] Lizeth Thacker Group Number: [id number] [address] PayID: [id number] [place] [address] Expires: 2018 Policy Number: [facility] Lizeth Thacker [id number] PayID: [id number] [address] [address] [place] [address] Advance Directives Description No Information Available Problems Date Description Provider Status Onset: 07/11/2018 Derangement of knee Shirley Lopez PA Active Family History Date Family Member(s) Observation Comments Father No Current Problems Mother No Current Problems Social History Type Date Description Comments Sex Unknown Marital Status Single Lives With Boyfriend Lives With Brother Home Environment Lives With Boyfriend Work Status Disabled Hand Dominance Right-handed Tobacco Use Start: Unknown End: Quit Unknown Smoking Status Reviewed: 01/23/19 Quit ETOH Use Rarely consumes alcohol Recreational [...] 19 s every day Mireya e, MS, [employer], CNM Zofran 01/09/20 Active Tablets 8mg 30tab 1 tab R11.0 Gagen, 19 s sublingua Mireya l every e, MS, day as [employer], needed CNM for nausea Montelukast 10/23/20 Active Tablets 10mg 90tab 1 by J30.89 Gagen, Sodium 18 s mouth Mireya every day e, MS, [employer], CNM Fluticasone 09/06/20 Active Suspension 50mcg/Act 32gm 2 sprays F41.0 Gagen, Propionate 18 intranasa Mireya l every e, MS, day prn [employer], CNM Omeprazole 02/18/20 Active Capsules 20mg 30cap 1 tab po R10.[address] rodriguez am with Chandler, breakfast MD Ventolin HFA Active Aerosol 108(90Bas 8gm take 2 Osorio,Chr 00 e) puffs istopher mcg/Act every 6 MD hours as needed for shortness of breath. Loratadine Active Capsules 10mg 1 by Unknown (OTC) 00 mouth every day Melatonin 10/23/20 Hx Capsules 5mg 30cap Take one G47.00 Gagen, 18 - s at night Mireya 01/23/20 for e, MS, 19 insomnia [employer], CNM Escitalopram 09/20/20 Hx Tablets 5mg 90tab 1 tab by F41.0 Gagen, Oxalate 18 - s mouth Mireya 01/09/20 every e, MS, 19 night [employer], CNM Zofran Odt 09/20/20 Hx Tablets 4mg 30tab 1 tab R11.0 Gagen, 18 - Dispers s sublingua Mireya 01/09/20 l every e, MS, 19 day as [employer], needed CNM for nausea Sertraline HCL 09/06/20 Hx Tablets 25mg 30tab 1 tab by F41.0 Gagen, 18 - s mouth Mireya Unknown every day e, MS, [employer], CNM No Active 01/29/20 Hx Bharati, Medications 17 - MD Luisa 01/29/20 17 Zofran Odt 01/29/20 Hx Tablets 4mg 30tab 1 tab Bharati, 17 - Dispers s sublingua MD Luisa Unknown l every day as needed for nausea Levocetirizine Hx Tablets 5mg 1daily Guerrero Osorio Dihydrochloride 00 - istopher 10/23/20 18 Montelukast Hx Tablets 10mg 1 daily Guerrero Osorio Sodium 00 - istopher 01/23/20 19 Prednisone Hx Tablets 20mg 1 tab Louis, 00 - daily for Durga 01/09/20 left knee M., M.D 19 pain. Immunizations Description No Information Available Vital Signs Date Vital Result Comment 01/23/2019 9:20am BP Systolic Sitting Left Arm 140 mmHg BP Diastolic Sitting Left Arm 86 mmHg Body Temperature 97.3 F Heart Rate 107 /min Height 64 inches 5'4" Weight 296.00 lb BMI (Body Mass Index) 50.8 kg/m2 BSA (Body Surface Area) 2.31 m2 [place] body weight in kilograms 54 kg O2 % BldC Oximetry 98 % 01/09/2019 9:00am BP Systolic Sitting Left Arm 110 mmHg BP Diastolic Sitting Left Arm 72 mmHg Body Temperature 98.4 F Heart Rate 76 /min Reg Respiratory Rate 24 /min Height 64 inches 5'4" Weight 295.00 lb BMI (Body Mass Index) 50.6 kg/m2 BSA (Body Surface Area) 2.31 m2 [place] body weight in kilograms 54 kg O2 % BldC Oximetry 98 % Ra 10/23/2018 3:19pm BP Systolic Sitting Right Arm 128 mmHg BP Diastolic Sitting Right Arm 80 mmHg Body Temperature 98.9 F Heart Rate 79 /min Respiratory Rate 18 /min Height 64 inches 5'4" Weight 283.00 lb BMI (Body Mass Index) 48.6 kg/m2 BSA (Body Surface Area) 2.27 m2 [place] body weight in kilograms 54 kg O2 [...] kg/m2 BSA (Body Surface Area) 2.26 m2 [place] body weight in kilograms 54 kg O2 % BldC Oximetry 100 % 09/15/2018 3:01pm BP Systolic Sitting Right Arm 132 mmHg BP Diastolic Sitting Right Arm 86 mmHg Heart Rate 106 /min Respiratory Rate 18 /min Height 64 inches 5'4" Weight 281.00 lb BMI (Body Mass Index) 48.2 kg/m2 BSA (Body Surface Area) 2.26 m2 [place] body weight in kilograms 54 kg O2 % BldC Oximetry 99 % Room air 09/06/2018 2:24pm BP Systolic 150 mmHg BP Diastolic 94 mmHg Body Temperature 99.1 F Heart Rate 121 /min Respiratory Rate 20 /min Height 64 inches 5'4" Weight 274.44 lb BMI (Body Mass Index) 47.1 kg/m2 BSA (Body Surface Area) 2.24 m2 [place] body weight in kilograms 54 kg O2 % BldC Oximetry 98 % 07/11/2018 11:10am BP Systolic Sitting Right Arm 145 mmHg BP Diastolic Sitting Right Arm 106 mmHg Body Temperature 98.9 F Heart Rate 97 /min Height 64 inches 5'4" Weight 279.00 lb BMI (Body Mass Index) 47.9 kg/m2 BSA (Body Surface Area) 2.25 m2 [place] body weight in kilograms 54 kg O2 % BldC Oximetry 117 % 02/17/2017 3:46pm BP Systolic 120 mmHg BP Diastolic 88 mmHg Heart Rate 89 /min Weight 274.00 lb 01/28/2017 2:18pm BP Systolic 126 mmHg BP Diastolic 74 mmHg Heart Rate 124 /min Height 64 inches 5'4" Weight 276.00 lb BMI (Body Mass Index) 47.4 kg/m2 BSA (Body Surface Area) 2.24 m2 [place] body weight in kilograms 54 kg Results Test Date Facility Test Result H/L Range Note Xray [facility] - Orthopedic RMP, Hip, LT, Ap & < pending> [address] [place] [address] Pelvis [phone] Eosinophil/leuk NFr N2N/CCD Import Eosinophil/leuk NFr 11.3 [...] NFr N2N/CCD Import Monocytes/leuk NFr 5.5 4.3- 13. Bld Auto 018 Bld Auto 2 Neutrophils # Bld N2N/CCD Import Neutrophils # Bld 8.39 High 1.8- 7.0 Auto 018 Auto Neutrophils/leuk N2N/CCD Import Neutrophils/leuk 59.9 40.4-72 NFr Bld Auto 018 NFr Bld Auto .8 Potassium N2N/CCD Import Potassium 3.7 3.5-5.1 SerPl-sCnc 018 SerPl-sCnc RDW RBC Auto N2N/CCD Import RDW RBC Auto 39.6 3-47 018 RDW RBC Auto-Rto N2N/CCD Import RDW RBC Auto-Rto 13.7 11.7-14 018 .4 Serum carbon N2N/CCD Import Serum carbon 26 21-32 dioxide measurement 018 dioxide measurement Serum or plasma N2N/CCD Import Serum or plasma 3.7 3.4-5.0 albumin measurement 018 albumin measurement (mass/volume) (mass/volume) Serum or plasma N2N/CCD Import Serum or plasma 68 45-117 alkaline 018 alkaline phosphatase phosphatase measurement ( measurement (enzymatic activity/volume) Serum or plasma N2N/CCD Import Serum or plasma 31 15-37 aspartate 018 aspartate aminotransferase aminotransferase measure measurement (enzymatic activity/volume) Serum or plasma N2N/CCD Import Serum or plasma 9.0 8.5-10. calcium measurement 018 calcium measurement 1 (mass/volume) (mass/volume) Serum or plasma N2N/CCD Import Serum or plasma 0.8 0.6-1.3 creatinine 018 creatinine measurement measurement (mass/volum (mass/volume) Serum or plasma N2N/CCD Import Serum or plasma 114 High 74-106 glucose measurement 018 glucose measurement (mass/volume) (mass/volume) Serum or plasma N2N/CCD Import Serum or plasma 8.2 6.4-8.2 protein measurement 018 protein measurement (mass/volume) (mass/volume) Serum or plasma N2N/CCD Import Serum or plasma 8 7-18 urea nitrogen 018 urea nitrogen measurement measurement (mass/vo (mass/volume) Serum or plasma N2N/CCD Import Serum or plasma 10.0 urea 018 urea nitrogen/creatinine nitrogen/creatinine mass rati mass ratio Serum sodium N2N/CCD Import Serum sodium 140 136-145 measurement 018 measurement Unloinc N2N/CCD Import Unloinc Diff 018 Ordered [facility] Glucose 114 mg/dL High 74-106 1 Metabolic Panel [address] [place] [address] [phone] BUN 8 mg/dL N 7-18 Creatinine 0.8 [...] U/L N 45-117 Laboratory test finding 08/16/2018 [facility] Troponin-I < 0.015 ng/mL [address] [place], [place] [id number] [phone] HCG,Serum (Qualitative) NEGATIVE (Negative) 4 CBC W/Automated 08/16/2018 [facility] White Blood 14.0 K/uL High 3.1-10.[address] Count [place], [place] [id number] [phone] Red Blood Count 5.27 M/uL N 3.90-5.40 [...] 40.4-72.8 Lymph % 22.9 % N 20.0-42.0 Bowie % 5.5 % N 4.3-13.2 Eo% 11.3 % High 0.0-6.6 Bas% 0.4 % N 0.0-1.1 Neut# 8.39 K/uL High 1.8-7.0 Lymph # 3.21 K/uL N 1.0-4.0 Bowie # 0.77 K/uL N 0.3-0.9 Eos # 1.59 K/uL High 0.0-0.5 Baso # 0.05 K/uL N 0.0-0.1 Slide Review 08/16/2018 [facility] Slide Review DIFF ORDERED [address] [place] [address] [phone] Differential-WBC 08/16/2018 [facility] Total Cells 100 #CELLS Confirm [address] [place] [address] [phone] Neutrophils% 65 % N 33-73 Lymph% 18 [...] volume measurement Ua RFX Micro & 02/20/2018 [facility] Urine Color YELLOW Yellow 5 Culture II [address] [place] [address] [phone] Urine Clarity CLEAR Clear Urine Glucose - Dipstick NEGATIVE mg/dL Negative Urine Bilirubin - Dipstick NEGATIVE Negative Urine Ketone NEGATIVE mg/dL Negative Urine Specific [place] 1.020 N 1.010-1.030 Urine Blood LARGE Abnormal [...] Source: URINE, CLEAN CAT <SEE NOTE> 6 Globulin Ser 02/07/2017 N2N/CCD Import Globulin Ser 3.5 1.9-4.3 Calc-mCnc Calc-mCnc Glucose 02/07/2017 N2N/CCD Import Glucose 110 High 74-106 [mass/volume] in [mass/volume] in serum or plasma serum or plasma Hct VFr Bld Auto 02/07/2017 N2N/CCD Import Hct VFr Bld Auto 43.0 36.0- 46.1 Hgb Bld-mCnc 02/07/2017 N2N/CCD Import Hgb Bld-mCnc 14.3 11.6-15.8 Lymphocytes # 02/07/2017 N2N/CCD Import Lymphocytes # 1.75 1.0-4.0 Bld Auto Bld Auto Lymphocytes/leuk 02/07/2017 N2N/CCD Import Lymphocytes/leuk 17.6 [...] Neutrophils # 02/07/2017 N2N/CCD Import Neutrophils # 7.07 High 1.8-7.0 Bld Auto Bld Auto Neutrophils/leuk 02/07/2017 N2N/CCD Import Neutrophils/leuk 71.3 [...] (enzymatic activity/volume) Sodium 02/07/2017 N2N/CCD Import Sodium 140 136-145 SerPl-sCnc SerPl-sCnc WBC # Bld Auto 02/07/2017 N2N/CCD Import WBC # Bld Auto 9.9 3.1-10.7 Color Ur 02/07/2017 N2N/CCD Import Color Ur Yellow Yellow Bilirub Ur Ql 02/07/2017 N2N/CCD Import Bilirub Ur Ql Negative Negative Strip.auto Strip.auto Bacteria 02/07/2017 N2N/CCD Import Bacteria Few None Seen [presence] in [presence] in urine sediment urine sediment by light gian by light microscopy Urine Culture 02/07/2017 [facility] Urine Culture URETHRAL [address] [place], [place] [id number] [phone] Quantity > 100,000 CFU/mL N 8 Ua Routine 02/07/2017 [facility] Urine Color YELLOW Yellow [address] [place] [address] [phone] Urine Clarity SL CLOUDY Clear Urine Glucose - Dipstick NEGATIVE mg/dL Negative Urine Bilirubin - Dipstick NEGATIVE Negative Urine Ketone NEGATIVE mg/dL Negative Urine Specific [place] >=1.030 N 1.010-1.030 Urine Blood NEGATIVE Negative [...] Source: URINE, CLEAN CAT <SEE NOTE> 10 Epithelial cells 02/07/2017 N2N/CCD Import Epithelial cells [...] NEGATIVE (Negative) finding [address] (Qualitative) [place] [address] [phone] Alp SerPl-cCnc 02/07/2017 N2N/CCD Import Alp SerPl-cCnc 75 45-117 Alt SerPl-cCnc 02/07/2017 N2N/CCD Import Alt SerPl-cCnc 95 High 12-78 Ast SerPl-cCnc 02/07/2017 N2N/CCD Import Ast SerPl-cCnc 34 15-37 Fibrin D-dimer 02/07/2017 N2N/CCD Import Fibrin D-dimer 0.25 Feu measurement Feu measurement in platelet poor in platelet poor pl plasma (mass/volume) Eosinophil/leuk 02/07/2017 N2N/CCD Import Eosinophil/leuk 4.7 0.0-6.6 [...] N2N/CCD Import Albumin 4.2 3.4-5.0 SerPl-mCnc SerPl-mCnc Bilirub Indirect 01/28/2017 N2N/CCD Import Bilirub Indirect 0.3 0.0-0.9 SerPl-mCnc SerPl-mCnc Lipase SerPl-cCnc 01/28/2017 N2N/CCD Import Lipase 163 73-393 SerPl-cCnc Serum or plasma 01/28/2017 N2N/CCD Import Serum or plasma 0.1 0.0-0.2 direct bilirubin direct bilirubin measurement (mass measurement (mass/volume) Liver Function 01/28/2017 [facility] Total Protein 8.1 g/dL N 6.4-8.2 11 Tests [address] [place] [address] [phone] Albumin 4.2 g/dL N 3.4-5.0 Globulin 3.9 g/dL N 1.9-4.3 Alb/Glob 1.1 ratio Bilirubin,Total 0.4 mg/dL N 0.2-1.0 Bilirubin,Direct 0.1 mg/dL N 0.0-0.2 Bilirubin,Indirect 0.3 mg/dL N 0.0-0.9 Sgot/Ast 35 U/L N 15-37 SGPT/Alt 88 U/L High 12-78 Alkaline Phosphatase 78 U/L N 45-117 Laboratory test 01/28/2017 [facility] Lipase 163 U/L N 73-393 finding [address] [place] [address] [phone] Urine human 01/07/2017 N2N/CCD Import Urine human [...] 11 R10.11 Procedures Date Code Description Status 01/23/2019 00006 Radiologic Exam Hip Unilateral With Pelvis 2-3 Views Completed 09/20/2018 46371 Pressurized/Non-Pressurized Inhalation Treatment,Acute Completed Obstructio 09/20/2018 30458 EKG-Tracing And Report Completed Encounters Type Date Location Provider Dx Diagnosis Office Visit 01/09/2019 [facility], F41.0 Panic disorder 9:00a Office MS Sheron, [episodic [employer], CNM paroxysmal anxiety] M25.562 Pain in left knee R11.0 Nausea R03.0 Elevated blood-pressure reading, w/o diagnosis of htn G47.00 Insomnia, unspecified E66.8 Other obesity J30.89 Other allergic rhinitis Z71.6 Tobacco abuse counseling Office Visit 10/23/2018 [facility], R03.0 Elevated 3:00p Office MS Sheron, blood-pressure [employer], CNM reading, w/o diagnosis of htn F41.0 Panic disorder [episodic paroxysmal anxiety] G47.00 Insomnia, unspecified E66.8 Other obesity J30.89 Other allergic rhinitis Office Visit 09/20/2018 9:00a Primary Care Sheron Morris, R91.1 Solitary Office MS, [employer], CNM pulmonary nodule J45.20 Mild intermittent asthma, uncomplicated [...] Sheron Morris, F41.0 Panic disorder Office MS, [employer] SU[employer], CNM [episodic paroxysmal anxiety] J45.909 Unspecified asthma, uncomplicated [...] Appointment(s):02/20/2019 9:00 am - Sheron Morris MS, [employer] SUPERVISOR-C, CNM at Primary Care Chpwxf2609/24/2019 4:00 pm - Zeus Murphy MD at Vrmplrcmwlb36/26 /2019 - Lea Spencer, MDM25.552 Pain in left hipM76.52 Patellar tendinitis, left knee
[2019-02-01 12:13] VITALS: BP 127/81
[2019-02-01 12:34] LABS: Influenza A Molecular NEGATIVE (Negative); Influenza B Molecular NEGATIVE (Negative)
--- NOTE | 2019-02-01 12:34 | UC ---
Respiratory Complaint HPI - HPI Summary HPI Summary: 28 yo female with nasal congestion and sinus pressure x 2 days no fever no myalgias no wheezing no CP or sob - History of Current Complaint Chief Complaint: UCRespiratory Stated Complaint: COUGH,CONGESTION Time Seen by Provider: 02/01/19 12:07 Hx Obtained From: Patient Hx Last Menstrual Period: 01/21 Onset/Duration: Gradual Onset, Lasting Days Timing: Constant Severity Initially: Mild Severity Currently: Moderate Pain Intensity: 5 Pain Scale Used: 0-10 Numeric Character: Cough: Nonproductive Aggravating Factors: Nothing Associated Signs And Symptoms: Positive: Nasal Congestion, Sinus Discomfort - Allergies/Home Medications Allergies/Adverse Reactions: Allergies Allergy/AdvReac Type Severity Reaction Status Date / Time almond oil Allergy Swelling Verified 02/01/19 11:59 Of Face,Lips,& Throat soy Allergy See Comment Verified 02/01/19 11:59 Tree Nuts Allergy Swelling Verified 02/01/19 11:59 Of Face,Lips,& Throat milk, ryder, strawberries Allergy Nausea Uncoded 02/01/19 11:59 seasonal Allergy Eyes Uncoded 02/01/19 11:59 Itchy/Swollen/Red/Watery Home Medications: Home Medications Albuterol HFA INHALER* [Ventolin HFA Inhaler*] 2 puff INH Q6H PRN 02/01/19 [ History Confirmed 02/01/19] Cetirizine* [ZyrTEC 10 MG TAB*] 10 mg PO DAILY 02/01/19 [History Confirmed 02/01] Escitalopram * [Lexapro 10 mg (NF)] 10 mg PO DAILY 02/01/19 [History Confirmed 02/01/19] Guaifenesin/Pseudo 600/60(NF) [Mucinex D 600/60 (NF)] 2 tab PO Q12H PRN [History Confirmed 02/01/19] Ondansetron HCl [Zofran] 8 mg PO DAILY PRN 02/01/19 [History Confirmed 02/01/19] PMH/Surg Hx/FS Hx/Imm Hx Previously Healthy: Yes Respiratory History: Asthma, Bronchitis, Pneumonia Other History Of: Negative For: HIV, Hepatitis B, Hepatitis C - Surgical History Surgical History: None - Family History Known Family History: Positive: Other - No DVT or PE Negative: Cardiac Disease, Hypertension - Social History Alcohol Use: Rare Substance Use Type: None Substance Use Comment - Amount & Last Used: Weekly and last used yesterday Smoking Status (MU): Former Smoker Type: Cigarettes Amount Used/How Often: /10 PPD Length of Time of Smoking/Using Tobacco: Since age 17 Have You Smoked in the Last Year: Yes When Did the Patient Quit Smoking/Using Tobacco: 08/2018 Household Exposure Type: Cigarettes - Immunization History Most Recent Influenza Vaccination: NONE Most Recent Tetanus Shot: UTD Vaccination Up to Date: Yes Review of Systems All Other Systems Reviewed And Are Negative: Yes Constitutional: Positive: Negative Skin: Positive: Negative Eyes: Positive: Negative ENT: Positive: Nasal Discharge, Sinus Congestion Respiratory: Positive: Cough Cardiovascular: Positive: Negative Gastrointestinal: Positive: Negative Genitourinary: Positive: Negative Motor: Positive: Negative Neurovascular: Positive: Negative Musculoskeletal: Positive: Negative Neurological: Positive: Negative Psychological: Positive: Negative Physical Exam Triage Information Reviewed: Yes Appearance: Well-Appearing, No Pain Distress, Well-Nourished Vital Signs: Initial Vital Signs Temp 98.4 F 02/01/19 12:05 Pulse 107 02/01/19 12:05 Resp 20 02/01/19 12:05 BP 127/81 02/01/19 12:05 Pulse Ox 100 02/01/19 12:05 Vital Signs Reviewed: Yes Eyes: Positive: Conjunctiva Clear ENT: Positive: Hearing grossly normal, Pharynx normal, Nasal congestion, Nasal drainage, TMs normal, Uvula midline. Negative: Tonsillar swelling, Tonsillar exudate, Trismus, Muffled voice, Hoarse voice, Dental tenderness, Sinus tenderness Neck: Positive: Supple, Nontender, No Lymphadenopathy Respiratory: Positive: Lungs clear, Normal breath sounds, No respiratory distress Cardiovascular: Positive: RRR, No Murmur, Tachycardia Musculoskeletal: Positive: ROM Intact, No Edema Neurological: Positive: Alert Psychological Exam: Normal Skin Exam: Normal Respiratory Course/Dx - Course Course Of Treatment: influenza (-) - Differential Dx/Diagnosis Provider Diagnosis: Viral URI Discharge - Sign-Out/Discharge Documenting (check all that apply): Patient Departure All imaging exams completed and their final reports reviewed: No Studies - Discharge Plan Condition: Stable Disposition: HOME Patient Education Materials: Upper Respiratory Infection (ED) Referrals: Luisa Calabrese MD [Primary Care Provider] - If Needed Additional Instructions: flu test NEGATIVE I suggest you also use SALINE NASAL SPRAY 2 sprays each nostril twice daily start using your nasonex twice daily for one week I suggest you use AFRIN NASAL SPRAY the day before your flight the day of your flight and the day after your flight - Billing Disposition and Condition Condition: STABLE Disposition: Home
== END 2019-02-01 12:49 | disposition home or self-care (01) ==
LOC: UCCORT 11:41
DX: J06.9 Acute upper respiratory infection, unspecified (principal); Z91.018 Allergy to other foods; Z91.09 Other allergy status, other than to drugs and biological substances; Z91.011 Allergy to milk products; J45.909 Unspecified asthma, uncomplicated; Z79.899 Other long term (current) drug therapy; Z87.891 Personal history of nicotine dependence
CPT/HCPCS: 99211; G0463